=== PATIENT | female | born 1990 | race Two or more races ===

== ENCOUNTER 2024-10-10 12:54 | Outpatient (CLI) | payer BC, SELFPAY ==
--- OUTSIDE RECORDS SUMMARY | 2024-09-08 16:29 | XMS_ITS | Encounter Summary ---
Author Organization [place] [address] Care Team Providers Care Leaf Conditioner Helper Name Role Phone Giovanny Romero MD Primary Care Provider [phone] Reason for Visit * Reason Comments Flank Pain R flank pain and ajit sis x 30 min Encounter Details Date Type Department Care Team (Latest Contact Info) Description 09/08/2024 4:29 PM EDT - 09/08/2024 8:57 PM EDT Emergency [facility] [address] [place] [id number] Erick Jimenez MD [address] [place] [id number] Ureterolithiasis (Primary Dx); Right flank pain Discharge Disposition: Home or Self Care Social History Tobacco Use Types Packs/Day Years Used Date Smoking Tobacco: Never Smokeless Tobacco: Never Alcohol Use Standard Drinks/Week Comments Not Currently 0 (1 standard drink = 0.6 oz pur e alcohol) rarely PHQ-2 Answer Date Recorded PHQ-2 Total Score 0 10/19/2023 Sexually Active Control Partners Comments Yes Surgical Male Comments No Sex and Gender Information Value Date Recorded Sex Assigned at Not on file Legal Sex Female 11:17 PM EDT Gender Identity Not on file Sexual Orientation Not on file documented as of this encounter Last Filed Vital Signs Vital Sign Reading Time Taken Comments Blood Pressure 122/95 09/08/2024 4:17 PM EDT Pulse 80 09/08/2024 4:17 PM EDT Temperature 36.6 C (97.9 F) 09/08/2024 4:17 PM EDT Respiratory Rate 24 09/08/2024 4:17 PM EDT Oxygen Saturation 98% 09/08/2024 6:30 PM EDT Inhaled Oxygen Concentration - - Weight 74.8 kg (165 lb) 09/08/2024 4:17 PM EDT Height 149.9 cm (4' 11 ) 09/08/2024 4:17 PM EDT Body Mass Index 33.33 09/08/2024 4:17 PM EDT documented in this encounter Functional Status * Is the person deaf or does he/she have serious difficulty hearing? Answer Date of Assessment Author No 10/19/2023 2:53 PM EDT Matthew James RMA * Is the person blind or does he/she have serious difficulty seeing even when wearing glasses? Answer Date of Assessment Author No 10/19/2023 2:53 PM EDT Matthew James RMA * Does this person have serious difficulty walking or climbing stairs? Answer Date of Assessment Author No 10/19/2023 2:53 PM EDT Matthew James RMA * Does this person have difficulty dressing or bathing? Answer Date of Assessment Author No 10/19/2023 2:53 PM EDT Matthew James RMA * Because of a physical, mental or emotional condition, does this person have difficulty doing errands alone such as visiting a doctor's office or shopping? Answer Date of Assessment Author No 10/19/2023 2:53 PM EDT Matthew James RMA * Suicide Severity Rating Answer Date of Assessment Author No Risk 09/08/2024 4:34 PM EDT Vangie Tejeda RN * [place] Suicide Severity Rating Scale (Q shift for moderate and high) Question Answer Date of Assessment Author 1. In the past month, have y ou wished you were or wished you could go to sleep and not wake up? 0 09/08/2024 4:34 PM CATHIET Vangie Tejeda RN 2. In the past month, have y ou actually had any thoughts of killing yourself? (If no, skip to question 6) 0 09/08/2024 4:34 PM EDT Peel, A J, RN 6. Have you ever done anythi ng, started to do anything, or prepared to do anything to end your life? 0 09/08/2024 4:34 PM EDT Vangie Tejeda RN documented as of this encounter Mental Status * Because of a physical, mental or emotional condition, does this person have serious difficulty concentrating, remembering or making decisions? Answer Entry Date Author No 10/19/2023 2:53 PM EDT Matthew James RMA documented in this encounter Discharge Instructions * Discharge Instructions* Anna Etienne PA-C - 09/08/2024 8:18 PM EDT Maintain plenty of fluid intake. Take Flomax as prescribed. Jlqu-mia-[id number] ibuprofen or tylenol per bottle instructions as needed for pain. Pain medicine as needed for pain not controlled by over the counter meds. Zofran as needed for nausea/vomiting. Maintain plenty of fluid intake. Follow up with urology in 72 hours if no spontaneous passage of stone or symptoms persist. Return to emergency department for increased pain, fever, inability to urinate, or other concerningsymptoms. documented in this encounter Medications at Time of Discharge albuterol (PROVENTIL HFA;VENTOLIN HFA) 90 mcg/actuation Inhl HFA Aerosol InhalerIndication s:Acute bronchitis, unspecified organism Inhale 2 Puffs into the lungs every 6 hours as needed. 1 Each 4 10/03/2023 azelastine (ASTELIN) 137 mcg (0.1 %) Nasl [place], Non-AerosolIndica tions:Acute bacterial sinusitis 2 Sprays in each nostril 2 times daily. Use in each nostril as directed 30 mL 5 12/08/2023 erenumab-aooe (AIMOVIG AUTOINJECTOR) 140 mg/mL SubQ Auto-Injector Subcutaneous (Inject under the skin) 1 mL every 30 days. 1 Each 5 12/08/2023 erenumab-aooe (AIMOVIG AUTOINJECTOR) 70 mg/mL SubQ Auto-InjectorIndi cations:Chronic migraine without aura, intractable, with status migrainosus Subcutaneous (Inject under the skin) 70 mg every 30 days. 1 Each 5 10/03/2023 FLUoxetine (PROZAC) 40 mg Oral CapsuleIndication s:Major depressive disorder, recurrent episode, mild,Panic disorder Take 1 Capsule by mouth daily. 30 Capsule 5 12/08/2023 ketoconazole (NIZORAL) 2 % Top Cream Apply topically daily. 60 g 2 03/01/2024 meloxicam (MOBIC) 15 mg Oral TabletIndications :TMJ pain dysfunction syndrome Take 1 Tablet by mouth daily as needed for Pain. 90 Tablet 1 02/10/2023 nadoloL (CORGARD) 40 mg Oral TabletIndications :Migraine without aura and without status migrainosus, not intractable tablet nightly 30 Tablet 5 10/03/2023 ubrogepant (UBRELVY) 50 mg Oral Tablet Take 1 Tablet by mouth as needed for Migraine. May repeat dose in 2 hours one time up to a maximum of 100mg per 24 hours 16 Tablet 5 12/08/2023 HYDROcodone-aceta minophen (NORCO) 5-325 mg Oral Tablet Take 1-2 Tablets by mouth every 6 hours as needed for Acute Pain (R52) for up to 3 days. 15 Tablet 09/08/2024 5 ondansetron (ZOFRAN-ODT) 4 mg Oral Tablet, Rapid Dissolve Dissolve 1 Tablet by mouth every 6 hours as needed for Nausea for up to 30 days. 12 Tablet 09/08/2024 5 ondansetron (ZOFRAN-ODT) 4 mg Oral Tablet, Rapid Dissolve Dissolve 1 Tablet by mouth every 6 hours as needed for Nausea for up to 30 days. 12 Tablet 09/08/2024 5 tamsulosin (FLOMAX) 0.4 mg Oral Capsule Take 1 Capsule by mouth daily for 7 days. 7 Capsule 09/08/2024 5 documented as of this encounter Ordered Prescriptions Prescription Sig Dispense Quantity Refills Last Filled Start Date End Date ondansetron (ZOFRAN-ODT) 4 mg Oral Tablet, Rapid Dissolve Dissolve 1 Tablet by mouth every 6 hours as needed for Nausea for up to 30 days. 12 Tablet 09/08/2024 5 ondansetron (ZOFRAN-ODT) 4 mg Oral Tablet, Rapid Dissolve Dissolve 1 Tablet by mouth every 6 hours as needed for Nausea for up to 30 days. 12 Tablet 09/08/2024 5 tamsulosin (FLOMAX) 0.4 mg Oral Capsule Take 1 Capsule by mouth daily for 7 days. 7 Capsule 09/08/2024 5 HYDROcodone-acetam inophen (NORCO) 5-325 mg Oral Tablet Take 1-2 Tablets by mouth every 6 hours as needed for Acute Pain (R52) for up to 3 days. 15 Tablet 09/08/2024 5 documented in this encounter Discharge Disposition Disposition Code Departure Means Destination Comment s Home or Self [facility] documented in this encounter ED Notes * Anna Etienne PA-C - 09/08/2024 4:16 PM EDT Chief Complaint Chief Complaint Patient presents with Flank Pain R flank pain and emesis x 30 min HPI Patient seen for supervising physician, Dr. Jimenez. Delilah Ortega is a 33 y.o. female with PMH significant for migraines, asthma who presents to the emergency department via private vehicle with her for evaluation of right flank pain, emesis. Patient reports onset of right sided flank and abdominal pain about 1.5 hours ago. Pain is described as a sharp and stabbing sensation. She also has had persistent nonbloody and nonbilious emesissince onset of the pain. Her reports that she has been very sweaty but unsure if she has had a fever. Denies diarrhea, melena, hematochezia. Denies dysuria, hematuria, increased urinary frequency. Denies abnormal vaginal bleeding or discharge. Prior abdominal surgeries include umbilical hernia repair. Denies illicit drug or alcohol use. She has not had any medicine for symptoms. No other concerns or complaints. Review of Systems A complete review of systems is negative or noncontributory except as noted in the HPI. Past Medical History Past Medical History: Diagnosis Date Asthma seasonal, uses inhaler Heart murmur ? told by dentist Heartburn Migraine takes Nadolol Motion sickness Family History Family History Problem Relation Age of Onset Heart Disease Mother Migraines Mother Diabetes Paternal Grandmother Migraines Paternal Grandmother Heart Disease Brother Rheum Arthritis Neg Hx Osteoarthritis Neg Hx Asthma Neg Hx Breast Cancer Neg Hx Cancer Neg Hx Heart Failure Neg Hx High Cholesterol Neg Hx Hypertension Neg Hx Ovarian Cancer Neg Hx Rashes/Skin Problems Neg Hx Seizures Neg Hx Stroke Neg Hx Thyroid Disease Neg Hx Sickle Cell Anemia Neg Hx Heart Defect Neg Hx Down Syndrome Neg Hx Mental Retardation Neg Hx Clotting Disorder Neg Hx Bleeding Prob Neg Hx Cystic Fibrosis Neg Hx Chorea Neg Hx PKU Neg Hx Defects Neg Hx Social History Social History Socioeconomic History Marital status: Spouse name: None Number of children: None Years of education: None Highest education level: None Tobacco Use Smoking status: Never Smokeless tobacco: Never Substance and Sexual Activity Alcohol use: Not Currently Comment: rarely Drug use: No Sexual activity: Yes Partners: Male control/protection: Surgical Surgical History Past Surgical History: Procedure Laterality Date ABDOMINOPLASTY 2017 BREAST ENHANCEMENT SURGERY Bilateral augmentation CYST REMOVAL from left ear HYMENECTOMY 03/15/2012 SURGICAL EXCISION HYMENAL REMNANT ; Surgeon: Brad Ayala MD; Location: [facility]; Service: Gynecology TYMPANOSTOMY TUBE PLACEMENT UMBILICAL HERNIA REPAIR N/A 10/25/2019 Robotic assisted laparoscopic umbilical hernia repair with mesh; Surgeon: Ayan Vásquez MD; Location: [facility]; Service: General Current Medications No current facility-administered medications on file prior to encounter. Current Outpatient Medications on File Prior to Encounter Medication Sig Dispense Refill albuterol (PROVENTIL HFA;VENTOLIN HFA) 90 mcg/actuation Inhl HFA Aerosol Inhaler Inhale 2 Puffs into the lungs every 6 hours as needed. 1 Each 4 azelastine (ASTELIN) 137 mcg (0.1 %) Nasl [place], Non-Aerosol 2 Sprays in each nostril 2 times daily. Use in each nostril as directed 30 mL 5 azithromycin (ZITHROMAX) 250 mg Oral Tablet Take 2 tablets (500 mg) on Day 1, followed by 1 tablet (250 mg) once daily on Days 2 through 5. 6 Tablet 0 erenumab-aooe (AIMOVIG AUTOINJECTOR) 140 mg/mL SubQ Auto-Injector Subcutaneous (Inject under the skin) 1 mL every 30 days. 1 Each 5 erenumab-aooe (AIMOVIG AUTOINJECTOR) 70 mg/mL SubQ Auto-Injector Subcutaneous (Inject under the skin) 70 mg every 30 days. 1 Each 5 FLUoxetine (PROZAC) 40 mg Oral Capsule Take 1 Capsule by mouth daily. 30 Capsule 5 ketoconazole (NIZORAL) 2 % Top Cream Apply topically daily. 60 g 2 meloxicam (MOBIC) 15 mg Oral Tablet Take 1 Tablet by mouth daily as needed for Pain. 90 Tablet 1 nadoloL (CORGARD) 40 mg Oral Tablet tablet nightly 30 Tablet 5 ubrogepant (UBRELVY) 50 mg Oral Tablet Take 1 Tablet by mouth as needed for Migraine. May repeat dose in 2 hours one time up to a maximum of 100mg per 24 hours 16 Tablet 5 Allergies Allergies Allergen Reactions Penicillins Anaphylaxis Augmentin [Amoxicillin-Pot Clavulanate] Hives and Nausea And Vomiting Imitrex [Sumatriptan Succinate] Palpitations Physical Exam Vital Signs: ED Triage Vitals [09/08/24 1617] Temp Pulse 80 Resp BP SpO2 100 % Height Weight Constitutional: Well developed and well nourished. In obvious discomfort, unable to sit still. Diaphoretic. Actively vomiting is dry heaving. HENT: Head: Normocephalic and atraumatic. Ear: External ears normal. Nose: Nose normal. Mouth/Throat: Oropharynx clear and moist. Airway patent. Eyes: Conjunctivae normal, no discharge. EOMI. Neck: Supple. Normal ROM. Cardiovascular: Normal rate. Normal rhythm. No murmurs, rubs, or gallops. Pulmonary/Chest: Respiratory effort normal. No distress. Breath sounds clear and equal bilaterally.No wheezing, rales, or rhonchi. No chest wall tenderness. Abdomen: Normoactive bowel sounds. Abdomen is soft and nondistended. There is right sided abdominaltenderness and right flank tenderness. Mild voluntary guarding. No rebound or rigidity. Skin: Warm and dry. No erythema or rash. Musculoskeletal: No deformity or swelling. Compartments soft. Extremities: Warm and well perfused. Intact pulses. No edema or tenderness. Neurologic: Awake, alert and oriented x3. No focal deficits noted. Cranial nerves appear intact. Normal motor and sensory function. Psychiatric: Affect normal, judgment normal, mood normal. ED Procedures Procedures Radiology/EKG/Labs Results for orders placed or performed during the hospital encounter of 09/08/24 CT ABD PEL ED FAST W CONTRAST Narrative CT ABDOMEN AND PELVIS WITH CONTRAST (FAST), 09/08/2024 5:26 PM CLINICAL HISTORY: -right flank pain, vomiting, chills COMPARISON: CT of abdomen/pelvis 11/22/2020. PROCEDURE COMMENTS: Multidetector volumetric scanning of the abdomen and pelvis with multiplanar reformatting per expedited protocol. Iodinated contrast injected intravenously as documented in Epic. Automated exposure control for dose reduction was used. FINDINGS: LOWER CHEST: Clear lung bases. Bilateral breast implants. Small hiatal hernia. ABDOMEN & PELVIS: The liver, gallbladder, spleen, pancreas, and adrenal glands are unremarkable. There is a 4 x 2 mm mildly obstructing calculus at the right ureteropelvic junction. No irregular hypoenhancing regions are evident within the right kidney. The left kidney is normal. The bladder is collapsed. The uterus and ovaries are unremarkable. The bowel is normal in caliber, including the appendix, without evidence of obstruction or an acute inflammatory process. Linear scarring of the abdominal wall is likely postsurgical. There is no lymphadenopathy, fluid collection, or acute osseous abnormality. Impression Mildly obstructing 4 x 2 mm calculus at the right ureteropelvic junction. BASIC METABOLIC PANEL Result Value Ref Range Sodium 138 136 - 145 mmol/L Potassium 3.8 3.5 - 5.0 mmol/L Chloride 106 98 - 107 mmol/L Total CO2 16 (L) 22 - 29 mmol/L Anion Gap 16 7 - 16 mmol/L Calcium 8.8 8.6 - 10.4 mg/dL Glucose Lvl 154 (H) 70 - 99 mg/dL BUN 8 6 - 20 mg/dL Creatinine 0.71 0.51 - 1.30 mg/dL eGFR (CKD-EPIcr 2020) 115 >=60 mL/min/1.73 m2 HUMAN CHORIONIC GONADOTROPIN QUANTITATIVE Result Value Ref Range Hcg Quant <1 <5 mIU/mL Narrative Female (non-): 0-4.9 mIU/mL Female (postmenopausal): 0-8.1 mIU/mL Indeterminate values for (e.g., 5-25 mIU/mL) may be confirmed with a repeat test in 48-72hours. Values in should double every 2-3 days for the first six weeks. Ingestion of salma doses of biotin (>5 mg/day) taken within 8 hours of drawing blood sample can interfere with this immunoassay test. UA W/REFLEX TO CULTURE Specimen: Urine, Clean Catch Narrative The following orders were created for panel order UA W/REFLEX TO CULTURE. Procedure Abnormality Status --------- ------ URINALYSIS REFLEX[[id number]] Abnormal Final result EXTRA MADSEN URINE CX[[id number]] In process Please view results for these tests on the individual orders. URINALYSIS REFLEX Result Value Ref Range UA Color Colorless UA Appear Clear Clear UA Glucose Negative Negative mg/dL UA Ketones Negative Negative mg/dL UA Blood 1+ (0.06 - 0.1 mg/dL) (A) Negative UA pH 6.5 5.0 - 8.0 pH UA Protein Negative Negative mg/dL UA Urobilinogen Normal <=1 mg/dL UA Bili Negative Negative UA Nitrite Negative Negative UA Leuk Est Negative Negative UA Spec Grav 1.010 1.001 - 1.035 no units UA RBC 3 0 - 3 /HPF UA Squam Epi 3+ /LPF UA Mucus Trace /LPF CBC Result Value Ref Range WBC 17.5 (H) 3.7 - 10.3 x10(3)/mcL RBC 5.14 3.90 - 5.20 x10(6)/mcL Hgb 13.4 11.2 - 15.7 g/dL Hct 41.0 34.0 - 45.0 % MCV 79.8 (L) 80.0 - 100.0 fL MCH 26.1 26.0 - 34.0 pg MCHC 32.7 30.7 - 35.5 g/dL RDW 14.2 <=14.9 % Platelet 383 (H) 155 - 369 x10(3)/mcL MPV 9.7 8.8 - 12.5 fL LACTIC ACID Result Value Ref Range Lactic Acid 3.1 (H) 0.5 - 1.9 mmol/L LIPASE LEVEL Result Value Ref Range Lipase Lvl 36 13 - 60 U/L REPEAT LACTIC ACID Result Value Ref Range Lactic Acid 1.5 0.5 - 1.9 mmol/L PROCALCITONIN Result Value Ref Range Procalcitonin <0.05 <=0.49 ng/mL Narrative Procalcitonin <0.50 ng/mL: Procalcitonin levels below 0.50 ng/mL on the first day of ICU admission represent a low risk for progression to severe sepsis and/or septic shock Procalcitonin >=0.50 ng/mL and <=2.00 ng/mL: If the procalcitonin measurement is performed shortly after the systemic infection process has started (usually less than 6 hours), this value may still be low. As various non-infectious conditions are known to induce procalcitonin as well, procalcitonin levels between 0.50 ng/mL and 2.00 ng/mL should be reviewed carefully to take into account the specific clinical background and condition(s) of the patient. Procalcitonin >2.00 ng/mL: Procalcitonin levels above 2.00 ng/mL on the first day of ICU admission represent a high risk for progression to severe sepsis and/or septic shock. Scoring Tools: ED Course ED Course as of 09/08/242048 Anna Etienne's Documentation [place] Sep 08, [address] Abdomen Pelvis FAST with IV contrast Mildly obstructing 4 x 2 mm calculus at the right ureteropelvic junction. ED Medications ED Current Prescriptions Medication Dispense Auth. Provider HYDROcodone-acetaminophen (NORCO) 5-325 mg Oral Tablet 15 Tablet Erick Jimenez MD tamsulosin (FLOMAX) 0.4 mg Oral Capsule 7 Capsule Anna Etienne PA-C ondansetron (ZOFRAN-ODT) 4 mg Oral Tablet, Rapid Dissolve 12 Tablet Anna Etienne PA-C ondansetron (ZOFRAN-ODT) 4 mg Oral Tablet, Rapid Dissolve 12 Tablet Erick Jimenez MD Medical Decision Making Patient seen for Dr. Jimenez. Pertinent labs and imaging studies reviewed. History was obtained from the patient. Medical records reviewed via ICU Metrix. This is a 33 y.o. female who presented to the ED for evaluation of right flank pain, emesis as described in HPI. Differentials included but were not limited to ureterolithiasis versus pyelonephritis versus perforated viscus versus bacterial peritonitis. On arrival, patient was ill-appearing but nontoxic, in obvious distress and unable to sit still. Vital signs were stable. She was normotensive, afebrile, and nontachycardic. Physical exam as above and notable for moderate tenderness on palpation of the right mid abdomen and right flank. No peritoneal signs or evidence of acute abdomen. Urinalysis revealed blood and CT of the abdomen/pelvis showed a mildly obstructing 4 x 2 mm calculus at the right UPJ. Initial lactic also elevated at 3.1 but improved to 1.5 after 1 L IV fluids. Moderate leukocytosis also noted, likely reactive/stress-induced from the vomiting. Pro-Van normal. Kidney function normal. Patient received morphine, Toradol, Dilaudid, and Zofran for symptom control and had significant improvement while in the ED. Urine not infected, so was deemed appropriate for discharge. She was sentprescriptions for pain medicine and Flomax as well as referred to urology for close follow-up if nospontaneous stone passage. Strict return precautions were discussed and the patient voiced understanding. All questions were answered. Patient was discharged in stable condition. ED Clinical Impression: Ureterolithiasis (primary encounter diagnosis) Right flank pain Condition at Discharge/Transfer from Department: Stable This chart was completed using voice recognition technology and may contain unintended errors Anna Etienne PA-C 09/08/242048 Cosigned by Erick Jimenez MD at 09/08/2024 9:54 PM EDT Associated attestation - Erick Jimenez MD - 09/08/2024 9:54 PM EDT Attending Wrap Yarn Sorter Note: I have participated in the care of this patient and have reviewed the pertinent clinical information including physical exam findings, labs, and radiographic studies. I have reviewed and/or discussedthe plan of care, of which I personally approve and take responsibility for the patient management. This patient was seen in coordination with the PA/SURVEYOR MINE. We discussed the management plan and testing results for this patient and I performed a substantive portion of the medical decision making. ED Course as of 09/08/242153 Others' Documentation Sun Sep 08, [address] Abdomen Pelvis FAST with IV contrast Mildly obstructing 4 x 2 mm calculus at the right ureteropelvic junction. [KF] ED Course User Index [KF] Anna Etienne PA-C No orders to display Erick Jimenez MD This chart was completed using voice recognition technology and may contain unintended errors documented in this encounter Plan of Treatment Upcoming Encounters Date Type Department Care Team (Late st Contact Info) Description 12/13/2024 9:30 AM EDT Office Visit [facility] [address] [place] [id number] Ashley Campbell PA-C [address] [place] [place] [address] 01/27/2025 8:30 AM EST Office Visit [facility] [address] [facility] [address] [place] [address] Kristal Hargrove, CN [address] [place] [address] documented as of this encounter Goals Goal Patient Goal Type Associated Problems Recent Progress Patient-Stated? Author Maintain a healthy diet, exercise regularly and maintain an ideal body weight General No Shahla Malik RMA documented as of this encounter Procedures Procedure Name Priority Date/Time Associated Diagnosis Comments REPEAT LACTIC ACID STAT 09/08/2024 7: 31 PM EDT PROCALCITONIN STAT 09/08/2024 7:31 PM EDT URINALYSIS REFLEX STAT 09/08/2024 7:1 1 PM EDT UA W/REFLEX TO CULTURE STAT 7:11 PM EDT EXTRA MADSEN URINE CX STAT 09/08/2024 7 :11 PM EDT LACTIC ACID STAT 09/08/2024 5:[address] ABD PEL ED FAST W CONTRAST STAT 09/08/2024 5:26 PM EDT CBC STAT 09/08/2024 4:35 PM EDT HUMAN CHORIONIC GONADOTROPIN QUANTITATIVE STAT 09/08/2024 4:35 PM EDT LIPASE LEVEL Add-On 09/08/2024 4:35 PM EDT BASIC METABOLIC PANEL STAT 09/08/2024 4:35 PM EDT SALINE LOCK IV STAT 09/08/2024 4:17 PM EDT documented in this encounter Results * PROCALCITONIN (09/08/2024 7:31 PM EDT) Procalcitonin <0.05 <=0.49 ng/mL 09/08/2024 8:07 PM EDT [facility] Blood VENOUS BLOOD / Unknown Venipuncture / Unknown 09/08/2024 7:31 PM EDT 09/08/2024 7:39 PM EDT Narrative [facility] - 09/08/2024 8:07 PM EDT Procalcitonin <0.50 ng/mL: Procalcitonin levels below 0.50 ng/mL on the first day of ICU admission represent a low risk for progression to severe sepsis and/or septic shock Procalcitonin >=0.50 ng/mL and <=2.00 ng/mL: If the procalcitonin measurement is performed shortly after the systemic infection process has started (usually less than 6 hours), this value may still be low. As various non-infectious conditions are known to induce procalcitonin as well, procalcitonin levels between 0.50 ng/mL and 2.00 ng/mL should be reviewed carefully to take into account the specific clinical background and condition(s) of the patient. Procalcitonin >2.00 ng/mL: Procalcitonin levels above 2.00 ng/mL on the first day of ICU admission represent a high risk for progression to severe sepsis and/or septic shock. us Anna Etienne PA-C CHEMISTRY ORDERABLES Final Res ult [facility] [address] [place] [address] * REPEAT LACTIC ACID (09/08/2024 7:31 PM EDT) Pathologist [facility] Lactic Acid 1.5 0.5 - 1.9 mmol/L 09/08/2024 7:58 PM EDT [facility] Blood VENOUS BLOOD / Unknown Venipuncture / Unknown 09/08/2024 7:31 PM EDT 09/08/2024 7:39 PM EDT Anna Etienne PA-C CHEMISTRY ORDERABLES Final Res ult Performing Organization Address City/[facility]/ZIP Co de Phone Number [facility] [address] [place] [address] * EXTRA MADSEN URINE CX (09/08/2024 7:11 PM EDT) Urine STRUCTURE OF URINARY TRACT PROPER / Unknown 09/08/2024 7:11 PM EDT 09/08/2024 7:15 PM EDT Erick Jimenez MD MICROBIOLOGY - GENERAL ORDERABL ES Final Result Performing Organization Address [facility]/ZIP Co de Phone Number [facility] [address] [place] [address] * (ABNORMAL) URINALYSIS REFLEX (09/08/2024 7:11 PM EDT) Pathologist [facility] UA Color Colorless 09/08/2024 7:24 PM EDT [facility] UA Appear Clear Clear 09/08/2024 7:24 PM EDT [facility] UA Glucose Negative Negative mg/dL 09/08/2024 7:24 PM EDT [facility] UA Ketones Negative Negative mg/dL 09/08/2024 7:24 PM EDT [facility] UA Blood 1+ (0.06 - 0.1 mg/dL)(A) Negative 09/08/2024 7:24 PM EDT [facility] UA pH 6.5 5.0 - 8.0 pH 09/08/2024 7:24 PM EDT [facility] UA Protein Negative Negative mg/dL 09/08/2024 7:24 PM EDT [facility] UA Urobilinogen Normal <=1 mg/dL 7:24 PM EDT [facility] UA Bili Negative Negative 09/08/2024 7:24 PM EDT [facility] UA Nitrite Negative Negative 09/08/2024 7:24 PM EDT [facility] UA Leuk Est Negative Negative 09/08/2024 7:24 PM EDT [facility] UA Spec Grav 1.010 1.001 - 1.035 no units 09/08/2024 7:24 PM EDT [facility] Comment:Reference range johanny d for random specimens only. UA RBC 3 0 - 3 /HPF 09/08/2024 7:24 PM EDT [facility] UA Squam Epi 3+ /LPF 09/08/2024 7:24 PM EDT [facility] UA Mucus Trace /LPF 09/08/2024 7:24 PM EDT [facility] Urine STRUCTURE OF URINARY TRACT PROPER / Unknown 09/08/2024 7:11 PM EDT 09/08/2024 7:15 PM EDT us Erick Jimenez MD URINE ORDERABLES Final Result Performing Organization Address [facility]/ZIP Co de Phone Number [facility] [address] [place] [address] * (ABNORMAL) LACTIC ACID (09/08/2024 5:36 PM EDT) Lactic Acid 3.1(H) 0.5 - 1.9 mmol/L 09/08/2024 5:58 PM EDT [facility] Blood VENOUS BLOOD / Unknown Venipuncture / Unknown 09/08/2024 5:36 PM EDT 09/08/2024 5:40 PM EDT us Anna Etienne PA-C CHEMISTRY ORDERABLES Final Res ult Performing Organization Address City/[facility]/ZIP Co de Phone Number [facility] [address] [place] [address] * CT ABD PEL ED FAST W CONTRAST (09/08/2024 5:26 PM EDT) Anatomical Region Laterality Modality Abdomen, Pelvis Computed Tomogra phy 09/08/2024 5:26 PM EDT Impressions 09/08/2024 5:48 PM EDT Mildly obstructing 4 x 2 mm calculus at the right ureteropelvic junction. Narrative 09/08/2024 5:[address] ABDOMEN AND PELVIS WITH CONTRAST (FAST), 09/08/2024 5:26 PM CLINICAL HISTORY: -right flank pain, vomiting, chills COMPARISON: CT of abdomen/pelvis 11/22/2020. PROCEDURE COMMENTS: Multidetector volumetric scanning of the abdomen and pelvis with multiplanar reformatting per expedited protocol. Iodinated contrast injected intravenously as documented in Epic. Automated exposure control for dose reduction was used. FINDINGS: LOWER CHEST: Clear lung bases. Bilateral breast implants. Small hiatal hernia. ABDOMEN & PELVIS: The liver, gallbladder, spleen, pancreas, and adrenal glands are unremarkable. There is a 4 x 2 mm mildly obstructing calculus at the right ureteropelvic junction. No irregular hypoenhancing regions are evident within the right kidney. The left kidney is normal. The bladder is collapsed. The uterus and ovaries are unremarkable. The bowel is normal in caliber, including the appendix, without evidence of obstruction or an acute inflammatory process. Linear scarring of the abdominal wall is likely postsurgical. There is no lymphadenopathy, fluid collection, or acute osseous abnormality. Procedure Note Tad Rodrigues MD - 09/08/2024 CT ABDOMEN AND PELVIS WITH CONTRAST (FAST), 09/08/2024 5:26 PM CLINICAL HISTORY: -right flank pain, vomiting, chills COMPARISON: CT of abdomen/pelvis 11/22/2020. PROCEDURE COMMENTS: Multidetector volumetric scanning of the abdomen andpelvis with multiplanar reformatting per expedited protocol. Iodinated contrast injected intravenously as documented in Epic. Automated exposure controlfor dose reduction was used. FINDINGS: LOWER CHEST: Clear lung bases. Bilateral breast implants. Small hiatalhernia. ABDOMEN & PELVIS: The liver, gallbladder, spleen, pancreas, and adrenal glands areunremarkable. There is a 4 x 2 mm mildly obstructing calculus at the rightureteropelvic junction. No irregular hypoenhancing regions are evident within theright kidney. The left kidney is normal. The bladder is collapsed. The uterusand ovaries are unremarkable. The bowel is normal in caliber, including the appendix, without evidenceof obstruction or an acute inflammatory process. Linear scarring of the abdominal wall is likely postsurgical. There isno lymphadenopathy, fluid collection, or acute osseous abnormality. IMPRESSION: Mildly obstructing 4 x 2 mm calculus at the right ureteropelvicjunction. Anna Etienne PA-C IMG CT ORDERABLES Final Result * LIPASE LEVEL (09/08/2024 4:35 PM EDT) Pathologist [facility] Lipase Lvl 36 13 - 60 U/L 09/08/2024 7:21 PM EDT [facility] Blood VENOUS BLOOD / Unknown Venipuncture / Unknown 09/08/2024 4:35 PM EDT 09/08/2024 4:41 PM EDT Anna Etienne PA-C CHEMISTRY ORDERABLES Final Res ult [facility] [address] [place] [id number] * (ABNORMAL) CBC (09/08/2024 4:35 PM EDT) Pathologist [facility] WBC 17.5(H) 3.7 - 10.3 x10(3)/mcL 09/08/2024 4:44 PM EDT [facility] RBC 5.14 3.90 - 5.20 x10(6)/mcL 09/08/2024 4:44 PM EDT [facility] Hgb 13.4 11.2 - 15.7 g/dL 09/08/2024 4:44 PM EDT [facility] Hct 41.0 34.0 - 45.0 % 09/08/2024 4:44 PM EDT [facility] MCV 79.8(L) 80.0 - 100.0 fL 09/08/2024 4:44 PM EDT [facility] MCH 26.1 26.0 - 34.0 pg 09/08/2024 4:44 PM EDT [facility] MCHC 32.7 30.7 - 35.5 g/dL 09/08/2024 4:44 PM EDT [facility] RDW 14.2 <=14.9 % 09/08/2024 4:44 PM EDT [facility] Platelet 383(H) 155 - 369 x10(3)/mcL 09/08/2024 4:44 PM EDT [facility] MPV 9.7 8.8 - 12.5 fL 09/08/2024 4:44 PM EDT [facility] Blood VENOUS BLOOD / Unknown Venipuncture / Unknown 09/08/2024 4:35 PM EDT 09/08/2024 4:41 PM EDT us Anna Etienne PA-C HEMATOLOGY ORDERABLES Final Re sult [facility] [address] [place] [address] * HUMAN CHORIONIC GONADOTROPIN QUANTITATIVE (09/08/2024 4:35 PM EDT) Hcg Quant <1 <5 mIU/mL 09/08/2024 5:02 PM EDT [facility] Blood VENOUS BLOOD / Unknown Venipuncture / Unknown 09/08/2024 4:35 PM EDT 09/08/2024 4:41 PM EDT Narrative [facility] - 09/08/2024 5:02 PM EDT Female (non-): 0-4.9 mIU/mL Female (postmenopausal): 0-8.1 mIU/mL Indeterminate values for (e.g., 5-25 mIU/mL) may be confirmed with a repeat test in 48-72 hours. Values in should double every 2-3 days for the first six weeks. Ingestion of salma doses of biotin (>5 mg/day) taken within 8 hours of drawing blood sample can interfere with this immunoassay test. us Erick Jimenez MD CHEMISTRY ORDERABLES Final Resu lt Performing Organization Address [facility]/ZIP Co de Phone Number [facility] [address] [place] [address] * (ABNORMAL) BASIC METABOLIC PANEL (09/08/2024 4:35 PM EDT) Sodium 138 136 - 145 mmol/L 09/08/2024 5:04 PM EDT [facility] Potassium 3.8 3.5 - 5.0 mmol/L 09/08/2024 5:04 PM EDT [facility] Chloride 106 98 - 107 mmol/L 09/08/2024 5:04 PM EDT [facility] Total CO2 16(L) 22 - 29 mmol/L 09/08/2024 5:04 PM EDT [facility] Anion Gap 16 7 - 16 mmol/L 09/08/2024 5:04 PM EDT [facility] Calcium 8.8 8.6 - 10.4 mg/dL 09/08/2024 5:04 PM EDT [facility] Glucose Lvl 154(H) 70 - 99 mg/dL 09/08/2024 5:04 PM EDT [facility] BUN 8 6 - 20 mg/dL 09/08/2024 5:04 PM EDT [facility] Creatinine 0.71 0.51 - 1.30 mg/dL 09/08/2024 5:04 PM EDT [facility] eGFR (CKD-EPIcr 2020) 115 >=60 mL/min/1.7 3 m2 09/08/2024 5:04 PM EDT [facility] Comment:Estimated GFR was ca lculated using the CKD-EPIcr (2020) equation refit without race. The equation is recommended by the [employer] - [place] [employer] Task Force. Blood VENOUS BLOOD / Unknown Venipuncture / Unknown 09/08/2024 4:35 PM EDT 09/08/2024 4:41 PM EDT Erick Jimenez MD CHEMISTRY ORDERABLES Final Resu lt Performing Organization Address [facility] Co de Phone Number [facility] [address] [place] [address] documented in this encounter Visit Diagnoses Diagnosis Ureterolithiasis- Primary Calculus of ureter Right flank pain Abdominal pain, unspecified site documented in this encounter Administered Medications Inactive Administered Medications - up to 1 most recent administrations Medication Order MAR Action Action Date Dose Rate Site HYDROcodone-acetaminophen (NORCO) 5-325 mg per tablet 1 Tablet 1 Tablet, Oral, ONCE, 1 dose, On 09/08/24 at 2045, Maximum adult dose of acetaminophen is 4000 mg from all sources in 24 hours. Given 09/08/2024 8:42 PM EDT 1 Tablet HYDROmorphone (DILAUDID) injection 0.5 mg 0.5 mg, Intravenous, ONCE, 1 dose, On 09/08/24 at 1715 Given 09/08/2024 5:03 PM EDT 0.5 mg iopamidoL (ISOVUE-370) 370 mg iodine /mL (76 %) injection (LOW) 100 mL 100 mL, Intravenous, ONCE PRN, 1 dose, Starting on Mon09/08/24 at 1702, Until Mon09/08/24 at 1727, Radiography/Imaging, Radiology Procedure, [facility] , CT (Contrasts) Given 09/08/2024 5:27 PM EDT 100 mL ketorolac (TORADOL) injection 15 mg 15 mg, Intravenous, ONCE, 1 dose, On 09/08/24 at 1830, For IV Administration: Give undiluted over at least 15 seconds. Maximum IV dose is 30mg. For IM Administration: Give undiluted, slowly and deeply into the muscle. Given 09/08/2024 6:30 PM EDT 15 mg morphine injection 4 mg 4 mg, Intravenous, ONCE, 1 dose, On 09/08/24 at 1645 Given 09/08/2024 4:53 PM EDT 4 mg ondansetron (ZOFRAN) injection 4 mg 4 mg, Intravenous, ONCE, 1 dose, On Mon09/08/24 at 1645 Given 09/08/2024 4:52 PM EDT 4 mg sodium chloride 0.9 % 1,000 mL IV bolus Intravenous, ONCE, 1 dose, On Mon09/08/24 at 1645, at 983.6 mL/hr IV Started 09/08/2024 5:51 PM EDT 983.6 mL/hr sodium chloride 0.9% IV line flush 50 mL 50 mL, Intravenous, at 150-600 mL/hr, PRN, Starting on Mon09/08/24 at 1617, Until Mon09/09/24 at 0057, Line Care, Flush with a minimum of 20 mL after IVPB to insure complete administration of the dose. May use the saline infusion to back flush IVPB tubing as needed., Use this order to document priming and flushing IV line after medication administration. sodium chloride 0.9% syringe 5 mL 5 mL, Intravenous, PRN, Starting on Mon09/08/24 at 1617, Until Mon09/09/24 at 0057, Line Care, Flush with 5 mL saline pre/post IVP, and 5 mL prior to IVPB or blood product administration. Protocol for PERIPHERAL IV saline lock maintenance, flush with 3-5 mL saline syringe every 8 hours., Flush peripheral lines every 12 hours, central lines every 8 hours, and after IV medication sodium chloride 0.9% syringe Intravenous, ONCE PRN, 1 dose, Starting on Mon09/08/24 at 1702, Until Mon09/08/24 at 1727, Line Care, Flush peripheral lines every 12 hours, central lines every 8 hours, and after IV medication, CT (Contrasts) Given 09/08/2024 5:27 PM EDT tamsulosin (FLOMAX) capsule 0.4 mg 0.4 mg, Oral, ONCE, 1 dose, On Mon09/08/24 at 2044, Capsule should be swallowed whole, do not open Given 09/08/2024 8:42 PM EDT 0.4 mg documented in this encounter Active and Recently Administered Medications Times are shown in EDT. Scheduled Medication Order 09/06/2024 09/07/2024 09/08/2024 HYDROcodone-acetaminophen (NORCO) 5-325 mg per tablet 1 Tablet (COMPLETED) 1 Tablet, Oral, ONCE, 1 dose, On Mon09/08/24 at 2044, Maximum adult dose of acetaminophen is 4000 mg from all sources in 24 hours. 2041 (Given - Provid er: Jh Bauer RN) HYDROmorphone (DILAUDID) injection 0.5 mg (COMPLETED) 0.5 mg, Intravenous, ONCE, 1 dose, On Mon09/08/24 at 1715 1703 (Given - Provid er: Maxime Jennings RN) ketorolac (TORADOL) injection 15 mg (COMPLETED) 15 mg, Intravenous, ONCE, 1 dose, On 09/08/24 at 1830, For IV Administration: Give undiluted over at least 15 seconds. Maximum IV dose is 30mg. For IM Administration: Give undiluted, slowly and deeply into the muscle. 1830 (Given - Provid er: Maxime Jennings RN) morphine injection 4 mg (COMPLETED) 4 mg, Intravenous, ONCE, 1 dose, On 09/08/24 at 1645 1653 (Given - Provid er: Maxime Jennings RN) ondansetron (ZOFRAN) injection 4 mg (COMPLETED) 4 mg, Intravenous, ONCE, 1 dose, On 09/08/24 at 1645 1652 (Given - Provid er: Maxime Jennings RN) sodium chloride 0.9 % 1,000 mL IV bolus (COMPLETED) Intravenous, ONCE, 1 dose, On 09/08/24 at 1645, at 983.6 mL/hr 1751 (IV Started - P rovider: Maxime Jennings RN)1852 (Stopped - Provider: Maxime Jennings RN) tamsulosin (FLOMAX) capsule 0.4 mg (COMPLETED) 0.4 mg, Oral, ONCE, 1 dose, On 09/08/24 at 204, Capsule should be swallowed whole, do not open 2041 (Given - Provid er: Jh Bauer RN) PRN Medication Order 09/06/2024 09/07/2024 09/08/2024 iopamidoL (ISOVUE-370) 370 mg iodine /mL (76 %) injection (LOW) 100 mL (COMPLETED) 100 mL, Intravenous, ONCE PRN, 1 dose, Starting on 09/08/24 at 1702, Until 09/08/24 at 1727, Radiography/Imaging, Radiology Procedure, [facility] , CT (Contrasts) 1727 (Given - Provid er: Sandra Mackenzie, RT) sodium chloride 0.9% IV line flush 50 mL 50 mL, Intravenous, at 150-600 mL/hr, PRN, Starting on Mon09/08/24 at 1617, Until Mon09/09/24 at 0057, Line Care, Flush with a minimum of 20 mL after IVPB to insure complete administration of the dose. May use the saline infusion to back flush IVPB tubing as needed., Use this order to document priming and flushing IV line after medication administration. sodium chloride 0.9% syringe 5 mL 5 mL, Intravenous, PRN, Starting on Mon09/08/24 at 1617, Until Mon09/09/24 at 0057, Line Care, Flush with 5 mL saline pre/post IVP, and 5 mL prior to IVPB or blood product administration. Protocol for PERIPHERAL IV saline lock maintenance, flush with 3-5 mL saline syringe every 8 hours., Flush peripheral lines every 12 hours, central lines every 8 hours, and after IV medication sodium chloride 0.9% syringe (COMPLETED) Intravenous, ONCE PRN, 1 dose, Starting on Mon09/08/24 at 1702, Until Mon09/08/24 at 1727, Line Care, Flush peripheral lines every 12 hours, central lines every 8 hours, and after IV medication, CT (Contrasts) 1727 (Given - Provid er: Sandra Mackenzie, RT) documented in this encounter Orders Medications Ordered That Sudeep ht Not Have Been Administered Count Last Ordered Date First Ordered Date sodium chloride 0.9% IV line flush 50 mL 09/08/2024 sodium chloride 0.9% syringe 5 mL 1 025 IV Count Last Ordered Date First Orde red Date SALINE LOCK IV 09/08/2024 documented in this encounter Care Teams 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
--- OUTSIDE RECORDS SUMMARY | 2024-09-12 13:00 | XMS_ITS | Encounter Summary ---
Author Organization [place] [address] Care Team Providers Care [employer] Developer Name Role Phone Giovanny Romero MD Primary Care Provider [phone] Reason for Referral * (Routine) - Pending Review Specialty Diagnoses / Procedures Referred By Morenita larios Referred To Contact Diagnoses Right nephrolithiasis Procedures AMB URO SURGERY COMM ORDER Trae Lagos MD [address] [place] [id number] Phone: tel: fax: Referral ID Status Reason Start Date Expiration Date V isits Requested Visits Authorized [id number] Pending Review 09/12/2024 09/12/2025 1 1 Reason for Visit * Reason Comments Nephrolithiasis pt. is here for a st one on the right side. pt. stated that she is in excruciating pain. Pt. stated that she went to the ER and they told her that if she didn't pass it in 72 hours to come here to discuss surgical options. pt. was given flomax in ER. Encounter Details Date Type Department Care Team (Latest Contact Info) Description 09/12/2024 1:00 PM EDT Office Visit [facility] [address] [place] [phone] Trae Lagos MD [address] [place] [id number] Right nephrolithiasis (Primary Dx) Social History Tobacco Use Types Packs/Day Years Used Date Smoking Tobacco: Never Smokeless Tobacco: Never Tobacco Cessation:Counseling Given: Not Answered Alcohol Use Standard Drinks/Week Comments Not Currently [...] Sign Reading Time Taken Comments Blood Pressure 128/82 09/12/2024 1:15 PM EDT Pulse - - Temperature 36.6 C (97.8 F) 09/12/2024 1:15 PM EDT Respiratory Rate - - Oxygen Saturation - - Inhaled Oxygen Concentration - - Weight 74.4 kg (164 lb 0.4 oz) 09/12/2024 1:15 P M EDT Height - - Body Mass Index 33.13 09/08/2024 4:17 PM EDT documented in this [...] 2:53 PM EDT Matthew James RMA documented as of this encounter Mental Status * Because of a physical, mental or emotional condition, does this person have serious difficulty concentrating, remembering or making decisions? Answer Entry Date Author No 10/19/2023 2:53 PM EDT Matthew James RMA documented in this encounter Ordered Prescriptions Prescription Sig Dispense Quantity Refills Last Filled Start Date End Date ketorolac (TORADOL) 10 mg Oral Tablet Take 1 Tablet by mouth every 6 hours as needed for Pain. 12 Tablet 09/12/2024 documented in this encounter Progress Notes * Trae Lagos MD - 09/12/2024 1:00 PM EDT Images from the original note were not included. [facility]rology New E&M Delilah Ortega 1990 Assessment/Orders: Delilah was seen today for nephrolithiasis. Diagnoses and all orders for this visit: Right nephrolithiasis - AMB URO SURGERY COMM ORDER Other orders - ketorolac (TORADOL) 10 mg Oral Tablet; Take 1 Tablet by mouth every 6 hours as needed for Pain. PLAN: 1. Right nephrolithiasis (Primary) - AMB URO SURGERY COMM ORDER Today we discussed nephrolithiasis. We discussed etiology of stones and symptoms associated with them. We discussed when treatment is most indicated and various appropriate approaches to treatment including ESWL, ureteroscopy, PCNL, trial of passage, watchful waiting. Discussed risks/benefits to each indicated approach along with procedure and recovery process. We discussed the need for staged pro cedures and placement of ureteral stents whether it be before or after stone treatment. We opted toproceed with cystoscopy, ureteroscopy LL, stent placement. Very uncomfortable today discussed primary ureteroscopy, stent placement discussed ER Return: No follow-ups on file. Chief Complaint(s): Chief Complaint Patient presents with Nephrolithiasis pt. is here for a stone on the right side. pt. stated that she is in excruciating pain. Pt. stated that she went to the ER and they told her that if she didn't pass it in 72 hours to come here to discuss surgical options. pt. was given flomax in ER. HPI: 33 y.o. female referred for evaluation and management of nephrolithiasis. Needs intervention; in severe pain/discomfort proximal UPJ stone 3mm approx prior stones? unsure as she may have passed but similar presentation UA today with blood No results found for this visit on 09/12/24. Past Medical History: Past Medical History: Diagnosis Date Asthma seasonal, uses inhaler Heart murmur ? told by dentist Heartburn Migraine takes Nadolol Motion sickness Past Surgical History: Procedure Laterality Date ABDOMINOPLASTY 2017 BREAST ENHANCEMENT SURGERY Bilateral augmentation CYST REMOVAL from left ear HYMENECTOMY 03/15/2012 SURGICAL EXCISION HYMENAL REMNANT ; Surgeon: Brad Ayala MD; Location: [facility] MAIN OR; Service: Gynecology TYMPANOSTOMY TUBE PLACEMENT UMBILICAL HERNIA REPAIR N/A 10/25/2019 Robotic assisted laparoscopic umbilical hernia repair with mesh; Surgeon: Ayan Vásquez MD; Location: [facility] MAIN OR; Service: General Current Outpatient Medications Medication Sig Dispense Refill albuterol (PROVENTIL HFA;VENTOLIN HFA) 90 mcg/actuation Inhl HFA Aerosol Inhaler Inhale 2 Puffs into the lungs every 6 hours as needed. 1 Each 4 azelastine (ASTELIN) 137 mcg (0.1 %) Nasl Mobile, Non-Aerosol 2 Sprays in each nostril 2 [...] Oral Tablet tablet nightly 30 Tablet 5 ondansetron (ZOFRAN-ODT) 4 mg Oral Tablet, Rapid Dissolve Dissolve 1 Tablet by mouth every 6 hours as needed for Nausea for up to 30 days. 12 Tablet 0 ondansetron (ZOFRAN-ODT) 4 mg Oral Tablet, Rapid Dissolve Dissolve 1 Tablet by mouth every 6 hours as needed for Nausea for up to 30 days. 12 Tablet 0 tamsulosin (FLOMAX) 0.4 mg Oral Capsule Take 1 Capsule by mouth daily for 7 days. 7 Capsule 0 ubrogepant (UBRELVY) 50 mg Oral Tablet Take 1 Tablet by mouth as needed for Migraine. May repeat dose in 2 hours one time up to a maximum of 100mg per 24 hours 16 Tablet 5 ketorolac (TORADOL) 10 mg Oral Tablet Take 1 Tablet by mouth every 6 hours as needed for Pain. 12 Tablet 0 No current facility-administered medications for this visit. Allergies Allergen Reactions Penicillins Anaphylaxis Augmentin [Amoxicillin-Pot Clavulanate] Hives and Nausea And Vomiting Imitrex [Sumatriptan Succinate] Palpitations Family History: Family History Problem Relation Age of Onset [...] PKU Neg Hx Defects Neg Hx Social History: Social History Socioeconomic History Marital status: Spouse name: None Number of children: None Years of education: None Highest education level: None Tobacco Use Smoking status: Never Smokeless tobacco: Never Substance and Sexual Activity Alcohol use: Not Currently Comment: rarely Drug use: No Sexual activity: Yes Partners: Male control/protection: Surgical ROS All other systems reviewed and negative except as stated in HPI PHYSICAL EXAM: Constitutional: Vitals Signs: BP 128/82 (BP Location: Left arm, Patient Position: Sitting) Temp 97.8 ??F (36.6 ??C) (Temporal) Wt 164 lb 0.4 oz (74.4 kg) LMP 08/08/2024 (Approximate) BMI 33.13 kg/m?? Appearance: No acute distress, comfortable at rest Mood & Affect: Anxiety No Depressed No Agitated No Skin: No cyanosis, jaundice or pallor Neck & Thyroid: Neck: Symmetric Yes Swelling No Tender No Thyroid: Not enlarged Respiratory: Clear to air entry bilaterally Cardiac: Regular rate and rhythm, heart sounds normal Lymphatic: Neck: No Abnormalities Groin: No Abnormalities Muskuloskeletal: Digits & Nails: Digits Normal Nails Normal Gait & Station: Gait Normal Station Normal ENT: External: Ears Normal Nose Normal Mouth Normal Hearing: Good hearing at 3 feet Data: No results found for this visit on 09/12/24. Labs: Lab results were reviewed in [facility] and pertinent positives are: No results found for: PSA Lab Results Component Value Date CREATININE 0.71 09/08/2024 BUN 8 09/08/2024 NA 138 09/08/2024 K 3.8 09/08/2024 CL 106 09/08/2024 CO2 16 (L) 09/08/2024 GFRAFRAM 118 12/01/2020 GFRNONAFRAM 102 12/01/2020 Imaging: Imaging studies (both written report and images on file) were reviewed in [employer] and pertinent positives are: No results found for this or any previous visit. No results found for this or any previous visit. No results found for this or any previous visit. No results found for this or any previous visit. No results found for this or any previous visit. Existing Medical Record: Progress Notes, Consults and miscellaneous records were reviewed in [employer] and pertinent positives are: see synopsis Outside paper records reviewed if applicable Trae Lagos MD [facility] 09/12/2024 1:31 PM documented in this encounter Plan of Treatment Upcoming Encounters Date Type Department Care Team (Late st Contact Info) Description 12/13/2024 9:30 AM EDT Office Visit [facility] [address] [place] [id number] Ashley Campbell PAStellaC [address] [place] [address] 01/27/2025 8:30 AM EST Office Visit [facility] [address] [facility] [address] [place] [address] Kristal Hargrove, CNM [address] [place] [address] Scheduled Orders Name Type Priority Associated Diagnoses Orde r Schedule SURGICAL/PROCEDURE CASE REQUEST Procedures Routine Right nephrolithiasis Ordered: 09/12/2024 documented as of this encounter Goals Goal Patient Goal Type Associated Problems Recent Progress Patient-Stated? Author Maintain a healthy diet, exercise regularly and maintain an ideal body weight General Shahla Dubon RMA documented as of this encounter Visit Diagnoses Diagnosis Right nephrolithiasis- Primary documented in this encounter Orders Nursing Count Last Ordered Date First Orde red Date AMB URO SURGERY COMM ORDER 1 09/12/2024 documented in this encounter Care Teams [employer] H[employer] Developer Relationship Specialty Start Date End Date Giovanny Romero MD [address] [place] [address] [address] [place] [address] PCP - General Internal Medicine 05/27/11 documented as of this encounter
--- OUTSIDE RECORDS SUMMARY | 2024-09-13 06:51 | XMS_ITS | Encounter Summary ---
Author [place] [address] Care Team Providers Care Mainframe Developer Name Role Phone Giovanny Romero MD Primary Care Provider [phone] Reason for Referral * Ultrasound (Routine) - Pending Review Specialty Diagnoses / Procedures Referred By Morenita larios Referred To Contact Radiology Diagnoses Right nephrolithiasis Procedures US RENAL AND BLADDER Trae Lagos MD [address] [place] [address] Phone: tel: fax: Referral ID Status Reason Start Date Expiration Date V isits Requested Visits Authorized [id number] Pending Review 09/13/2024 09/13/2025 1 1 Reason for Visit * Auth/Cert/Inpt Specialty Diagnoses / Procedures Referred By Morenita larios Referred To Contact Diagnoses Right nephrolithiasis Right nephrolithiasis [N20.0] Procedures ME CYSTO W/URETEROSCOPY W/LITHOTRIPSY ME CYSTO W/URETEROSCOPY W/RMVL/MANJ STONES CYSTOSCOPY, RIGHT URETEROSCOPY, LASER LITHOTRIPSY, RIGHT STENT PLACEMENT OR EXCHANGE Referral ID Status Reason Start Date Expiration Date Visits Re quested Visits Authorized [id number] 1 1 Encounter Details Date Type Department Care Team (Latest Contact Info) Description 09/13/2024 6:51 AM EDT - 09/13/2024 12:25 PM EDT Hospital Encounter [facility] SAME DAY SURGERY [facility] [place] [address] Trae Lagos MD [address] [place] [address] Preop testing (Primary Dx); Right nephrolithiasis Discharge Disposition: Home or Self Care Social [...] Sign Reading Time Taken Comments Blood Pressure 123/85 09/13/2024 12:09 PM EDT Pulse 64 09/13/2024 12:09 PM EDT Temperature 36.1 C (96.9 F) 09/13/2024 12:09 PM EDT Respiratory Rate 13 09/13/2024 12:09 PM EDT Oxygen Saturation 94% 09/13/2024 12:09 PM EDT Inhaled Oxygen Concentration - - Weight 74.8 kg (165 lb) 09/13/2024 7:12 AM EDT Height 149.9 cm (4' 11 ) 09/13/2024 7:12 AM EDT Body Mass Index 33.33 09/13/2024 7:12 AM EDT documented in this encounter Functional Status [...] No 10/19/2023 2:53 PM EDT Matthew James rayshawn PHILLIP Barragan * Because of a physical, mental or [...] this encounter Discharge Instructions * Discharge Instructions* Trae Lagos MD - 09/13/2024 8:24 AM EDT Images from the original note were not included. You had a stone removal today. The new stent is tied to a string which you can remove on Monday by pulling the string taped to your body. You will follow up in 3months with an ultrasound at that time. Take tylenol and ibuprofen for pain. Take your antibiotic for 7 days. Take the oxybutynin and the previous pain medication you have as needed for spasms. Frequent urination and blood in the urine is normal until the stent is out. If you become ill, call us or go the emergency room. If you don't hear form us, call our office at [phone] to arrange the follow up or surgery. [address] [place] [address] Trae Lagos MD [phone] +++++++++++++++++++++++++++++++++++++++++++++++++++++++++++++++++++ [facility] Discharge Instructions - Following Anesthesia We appreciate the opportunity to care for you today! Here are a few reminders as you head home: A responsible adult, 18 years or older must be in attendance until tomorrow morning. Rest quietly today. May resume usual diet as tolerated or as directed by your surgeon. Do not drive or operate any machinery until tomorrow morning or as instructed. Do not make any legal or important decisions for the next 24 hours. Do not drink alcoholic beverages or take sleeping pills for 24 hours unless otherwise directed. If you received a nerve block for post-operative pain control, protect your blocked arm/leg. It maybe numb. Carefully pad your limb to prevent pressure sores and other injuries. Be careful with applying cold/warm to the blocked limb. Numbness will alter the sensation of the limb and could damage your skin if you cannot correctly feel the temperature. If you have questions or concerns regarding your anesthesia experience, please call our office at . Get Well Soon! [facility] +++++++++++++++++++++++++++++++++++++++++++++++++++++++++++++++++++ documented in this encounter Medications at Time of Discharge albuterol (PROVENTIL HFA;VENTOLIN HFA) 90 mcg/actuation Inhl HFA Aerosol InhalerIndication s:Acute bronchitis, unspecified organism Inhale 2 Puffs into the lungs every 6 hours as needed. 1 Each 4 10/03/2023 azelastine (ASTELIN) 137 mcg (0.1 %) Nasl [place], Non-AerosolIndica tions:Acute bacterial sinusitis 2 Sprays in [...] Apply topically daily. 60 g 2 03/01/2024 ketorolac (TORADOL) 10 mg Oral Tablet Take 1 Tablet by mouth every 6 hours as needed for Pain. 12 Tablet 09/12/2024 meloxicam (MOBIC) 15 mg Oral TabletIndications :TMJ [...] per 24 hours 16 Tablet 5 12/08/2023 ondansetron (ZOFRAN-ODT) 4 mg Oral Tablet, Rapid Dissolve Dissolve 1 Tablet by mouth every 6 hours as needed for Nausea for up to 30 days. 12 Tablet 09/08/2024 5 ondansetron (ZOFRAN-ODT) 4 mg Oral Tablet, Rapid Dissolve Dissolve 1 Tablet by mouth every 6 hours as needed for Nausea for up to 30 days. 12 Tablet 09/08/2024 5 oxybutynin (DITROPAN-XL) 10 mg Oral Tablet Extended Rel 24 hr Take 1 Tablet by mouth daily. 15 Tablet 09/13/2024 5 sulfamethoxazole- trimethoprim (BACTRIM DS) 800-160 mg Oral Tablet Take 1 Tablet by mouth every 12 hours for 7 days. 14 Tablet 09/13/2024 5 tamsulosin (FLOMAX) 0.4 mg Oral Capsule Take 1 Capsule by mouth daily for 7 days. 7 Capsule 09/08/2024 5 documented as of this encounter Ordered Prescriptions Prescription Sig Dispense Quantity Refills Last Filled Start Date End Date oxybutynin (DITROPAN-XL) 10 mg Oral Tablet Extended Rel 24 hr Take 1 Tablet by mouth daily. 15 Tablet 09/13/2024 09/24/2024 sulfamethoxazole-t rimethoprim (BACTRIM DS) 800-160 mg Oral Tablet Take 1 Tablet by mouth every 12 hours for 7 days. 14 Tablet 09/13/2024 09/20/2024 documented in this encounter Discharge Disposition Disposition Code Departure Means Destination Comment s Home or Self Care Car Home documented in this encounter H&P Notes * Pedro Pittman NP - 09/13/2024 7:02 AM EDT [facility] History and Physical Name: Delilah Ortega ADDRESS: [address] [place] [address] : 1990 AGE: 33 y.o. Assessment: Right nephrolithiasis [N20.0] Plan: Procedure(s): CYSTOSCOPY, RIGHT URETEROSCOPY, LASER LITHOTRIPSY, RIGHT STENT PLACEMENT OR EXCHANGE per Trae Lagos MD Admitting Physician: Trae Lagos MD Date of Admit: 09/13/2024 Subjective SUBJECTIVE Chief Complaint: Right nephrolithiasis [N20.0] History of Present Illness: Patient is a 33 y.o. female with Right nephrolithiasis [N20.0] who presents for surgical intervention. Past Medical History: Diagnosis Date Asthma seasonal, uses inhaler Bladder problem 09/12/2024 kidney stones Heart murmur ? told by dentist Heartburn Migraine takes Nadolol Motion sickness Past Surgical History: Procedure Laterality Date ABDOMINOPLASTY 2017 BREAST ENHANCEMENT SURGERY Bilateral augmentation CYST REMOVAL from left ear HYMENECTOMY 03/15/2012 SURGICAL EXCISION HYMENAL REMNANT ; Surgeon: Brad Ayala MD; Location: [facility] MAIN OR; Service: Gynecology TYMPANOSTOMY TUBE PLACEMENT UMBILICAL HERNIA REPAIR N/A 10/25/2019 Robotic assisted laparoscopic umbilical hernia repair with mesh; Surgeon: Ayan Vásquez MD; Location: [facility] MAIN OR; Service: General Prior to Admission medications Medication Sig Start Date End Date Last Dose Authorizing Provider albuterol (PROVENTIL HFA;VENTOLIN HFA) 90 mcg/actuation Inhl HFA Aerosol Inhaler Inhale 2 Puffs into the lungs every 6 hours as needed. 10/03/23 Taking Giovanny Romero MD azelastine (ASTELIN) 137 mcg (0.1 %) Nasl [place], Non-Aerosol 2 Sprays in each nostril 2 times daily. Use in each nostril as directed Patient taking differently: 2 Sprays in each nostril 2 times daily. Use in each nostril as directeduses prn 12/08/23 Taking Differently Giovanny Romero MD ketorolac (TORADOL) 10 mg Oral Tablet Take 1 Tablet by mouth every 6 hours as needed for Pain. 09/12/24 09/12/2024 Trae Lagos MD ondansetron (ZOFRAN-ODT) 4 mg Oral Tablet, Rapid Dissolve Dissolve 1 Tablet by mouth every 6 hours as needed for Nausea for up to 30 days. 09/08/24 10/08/24 Taking Anna Etienne PA-C ondansetron (ZOFRAN-ODT) 4 mg Oral Tablet, Rapid Dissolve Dissolve 1 Tablet by mouth every 6 hours as needed for Nausea for up to 30 days. 09/08/24 10/08/24 Taking Erick Jimenez MD tamsulosin (FLOMAX) 0.4 mg Oral Capsule Take 1 Capsule by mouth daily for 7 days. 09/08/24 09/15/24 Taking Anna Etienne PA-C ubrogepant (UBRELVY) 50 mg Oral Tablet Take 1 Tablet by mouth as needed for Migraine. May repeat dose in 2 hours one time up to a maximum of 100mg per 24 hours 12/08/23 Taking Giovanny Romero MD erenumab-bobbi (AIMOVIG AUTOINJECTOR) 140 mg/mL SubQ Auto-Injector Subcutaneous (Inject under the skin) 1 mL every 30 days. Patient not taking: Reported on 09/12/2024 12/08/23 Not Taking Giovanny Romero MD erenumabcoreen (AIMOVIG AUTOINJECTOR) 70 mg/mL SubQ Auto-Injector Subcutaneous (Inject under the skin) 70 mg every 30 days. Patient not taking: Reported on 09/12/2024 10/03/23 Not Taking Giovanny Romero MD FLUoxetine (PROZAC) 40 mg Oral Capsule Take 1 Capsule by mouth daily. Patient not taking: Reported on 09/12/2024 12/08/23 Not Taking Giovanny Romero MD ketoconazole (NIZORAL) 2 % Top Cream Apply topically daily. Patient not taking: Reported on 09/12/2024 03/01/24 Not Taking Giovanny Romero MD meloxicam (MOBIC) 15 mg Oral Tablet Take 1 Tablet by mouth daily as needed for Pain. Patient not taking: Reported on 09/12/2024 02/10/23 Not Taking Giovanny Romero MD nadoloL (CORGARD) 40 mg Oral Tablet tablet nightly Patient not taking: Reported on 09/12/2024 10/03/23 Not Taking Giovanny Romero MD Allergies Allergen Reactions Penicillins Anaphylaxis Augmentin [Amoxicillin-Pot Clavulanate] Hives and Nausea And Vomiting Imitrex [Sumatriptan Succinate] Palpitations Social History Socioeconomic History Marital status: Spouse name: None Number of children: None Years of education: None Highest education level: None Tobacco Use Smoking status: Never Smokeless tobacco: Never Vaping Use Vaping status: Never Used Substance and Sexual Activity Alcohol use: Not Currently Comment: rarely Drug use: No Sexual activity: Yes Partners: Male control/protection: Surgical Family History Problem Relation Age of Onset Heart Disease Mother Migraines Mother Heart Disease Brother Diabetes Paternal Grandmother Migraines Paternal Grandmother Rheum Arthritis Neg Hx Osteoarthritis Neg Hx [...] Hx PKU Neg Hx Defects Neg Hx Anesth Problems Neg Hx Active Hospital Problems Diagnosis *Right nephrolithiasis Blood pressure 123/86, pulse 65, temperature 98.5 ??F (36.9 ??C), temperature source Oral, resp. rate 16, height 4' 11 (1.499 m), weight 165 lb (74.8 kg), last menstrual period 08/10/2024, SpO2 98%,not currently .Pain: 09/22 Review of Systems: The listed systems were reviewed and reveal the following in addition to any already discussed in the HPI: Review of Systems Constitutional: Negative. HENT: Negative for congestion, ear discharge, ear pain, hearing loss, nosebleeds and sore throat. Eyes: Negative for blurred vision, double vision, pain, discharge and redness. Respiratory: Negative. Negative for cough, hemoptysis, sputum production, shortness of breath and wheezing. Cardiovascular: Negative for chest pain, palpitations, orthopnea and leg swelling. Gastrointestinal: Negative. Genitourinary: Positive for dysuria, flank pain, frequency, hematuria and urgency. Hx or recurrent kidney stones. States she is having right flank pain with urgency/frequency and occasional hematuria. Skin: Negative. Neurological: Negative for dizziness, seizures, weakness and headaches. Endo/Heme/Allergies: Negative. Psychiatric/Behavioral: Negative for depression. The patient is nervous/anxious. Objective OBJECTIVE Physical Exam: Body mass index is 33.33 kg/m??. Body surface area is 1.7 meters squared. Physical Exam Vitals and nursing note reviewed. Exam conducted with a patent engineer present. Constitutional: General: She is not in acute distress. Appearance: She is well-developed. She is not diaphoretic. HENT: Head: Normocephalic. Mouth/Throat: Pharynx: No oropharyngeal exudate. Eyes: General: No scleral icterus. Right eye: No discharge. Left eye: No discharge. Conjunctiva/sclera: Conjunctivae normal. Pupils: Pupils are equal, round, and reactive to light. Neck: Thyroid: No thyromegaly. Vascular: No JVD. Trachea: No tracheal deviation. Cardiovascular: Rate and Rhythm: Normal rate and regular rhythm. Heart sounds: Normal heart sounds. No murmur heard. No friction rub. No gallop. Pulmonary: Effort: Pulmonary effort is normal. No respiratory distress. Breath sounds: Normal breath sounds. No stridor. No wheezing or rales. Chest: Chest wall: No tenderness. Abdominal: General: Bowel sounds are normal. Palpations: Abdomen is soft. Tenderness: There is no abdominal tenderness. There is right CVA tenderness. There is no guarding. Musculoskeletal: General: No tenderness or deformity. Normal range of motion. Cervical back: Normal range of motion and neck supple. Lymphadenopathy: Cervical: No cervical adenopathy. Skin: General: Skin is warm and dry. Coloration: Skin is not pale. Findings: No erythema or rash. Neurological: Mental Status: She is alert and oriented to person, place, and time. Psychiatric: Behavior: Behavior normal. Thought Content: Thought content normal. Judgment: Judgment normal. Labs: Latest Reference Range & Units 09/08/24 19:11 UA Color Colorless UA Glucose Negative mg/dL Negative UA Bili Negative Negative UA Ketones Negative mg/dL Negative UA Blood Negative 1+ (0.06 - 0.1 mg/dL) ! UA pH 5.0 - 8.0 pH 6.5 UA Protein Negative mg/dL Negative UA Urobilinogen <=1 mg/dL Normal UA Nitrite Negative Negative UA Leuk Est Negative Negative UA Spec Grav 1.001 - 1.035 no units 1.010 RBC, UA 0 - 3 /HPF 3 UA Mucus /LPF Trace UA Appear Clear Clear UA Squam Epi /LPF 3+ !: Data is abnormal Radiology: CT ABDOMEN AND PELVIS WITH CONTRAST (FAST), [...] mm calculus at the right ureteropelvic junction. EKG:None noted in review of records. Pedro Pittman NP 09/13/2024 Cosigned by Clark Ledezma MD at 09/13/2024 9:57 AM EDT documented in this encounter Procedure Notes * Trae Lagos MD - 09/13/2024 10:42 AM EDT Pre-procedure diagnosis: right nephrolithiasis Post-procedure diagnosis: same Procedure: cystoscopy, right ureteroscopy, stone manipulation, stent placement Specimens: stone Blood loss: minimal Findings: semirigid followed by flexible ureteroscopy with stone basketing and stent placement. Details of the procedure: Patient is brought back to the operating room and preoperative antibiotics given. Patient is placed in the dorsal lithotomy after anesthesia is induced and a time out is done confirming patient identity and procedure. Cystoscopy is performed with 22-Fr sheath using the 30 degree lens. The ureteral orifice is identified and cannulated with a sensor wire. Our semirigid ureteroscope was advanced into the ureter and up to the UPJ. No stone was identified. We replaced the semirigid scope with a flexible scope and went alongside the wire. Our flexible ureteroscope was then advanced into the renal pelvis where the stone was identified and basketed in thelower pole. A zero tip netinol basket was used to remove the stone in its entirety. A repeat ureteroscopy was then done. The scope was used to perform pyeloscopy and examine the entire ureter down tothe UVJ. No stone or ureteral injury was identified. We opted to use our safety wire and place a 6fr x 24cm ureteral stent on a string. Bladder drained, scope removed. Counts correct x2. No complications evident. Trae Lagos MD F/u: stent removal at home in 5d; 3mo with KORTNEY prior documented in this encounter Nursing Notes * Kristin Ambriz, KIRAN - 09/12/2024 2:33 PM EDT Images from the original note were not included. PREPARING FOR YOUR SURGERY Date of Surgery: 09/13/2024 Arrival time: Your surgeon may have already provided this, check your paperwork from the office. Ifnot received, call your surgeon's office. Location: [facility] Medications on the Day of Surgery Take the following medications on the morning of surgery: ubrelvy, Medications to hold prior to surgery; Verify with your doctor for possibly discontinuing the following medications: blood thinners, aspirin, or anti-inflammatories. Stop taking all supplements 7 days prior to your surgery. Food, Drinks, Tobacco Do not eat any food after midnight. This includes gum, mints, candy, chewing tobacco, and dip. Unless otherwise instructed by your surgeon, you may consume water, Gatorade, Powerade, black coffee/tea(no milk, no cream/creamers, no sugar) up to two hours prior to your scheduled arrival time. No exceptions or substitutions to these restrictions. Do not smoke, vape, or use any type of tobacco or marijuana products within 24 hours prior to surgery. Smoking will also slow your rate of healing. It is advised that you do not smoke during the healing process. No alcohol 24 hours prior to surgery. News Anchor It is important to have a News Anchor, someone who is 18 years or older, to accompany you and remain in the facility for the duration of your surgery. This person should be available for the Perioperative Team, which includes your surgeon, to communicate with before, during and after your surgery. Because you are receiving anesthesia, someone is needed to drive you home and remain with you for at least 24 hours after surgery to make sure you are safe during that time We also recommend that no children be present on the day of surgery. If you have a concern, please reach out to our department [phone]. Hygiene [place] your teeth and gargle the morning of surgery. Shower the morning of surgery or the night before. Do not wear makeup (including eye makeup) lotion, powder, deodorant, perfume, or cologne. Do not shave the operative extremity or near the operative area. Remove nail burmese prior to surgery. This includes artificial nails and gel nail burmese. Personal Items Wear clean, simple, loose-fitting clothing (no jeans) and sturdy shoes (no flip flops, slides or crocs) to the hospital. Do not bring unnecessary valuables with you. It is policy that [facility] does not assume responsibility for lost, stolen or broken personal items that are brought in. Exceptions may be consideredfor items which are considered necessary for your healthcare. These items will be formally documented. Remove all jewelry prior to surgery to prevent injury. We will not tape wedding rings/bands Remove all body piercings prior to arrival. Plastic inserts are acceptable. Bring with You Bring a copy of your Living Will and/or Durable Power of Hotel Attendant for Healthcare. Notify the Surgeon Notify your surgeon if you develop any illness (fever, cold, cough, sore throat, nausea, vomiting, skin rashes etc.) between now and surgery time Notify your surgeon and Pre-admission testing ([phone]) if you have any changes in your healthconditions or if any new medications are ordered between now and surgery.. Questions or Concerns? If you have any questions or concerns, feel free to call the Pre-Admission testing department at [phone]. We want to make sure you feel safe and have an excellent experience while you are here. Do not reply to this message through [employer] as it may not be answered promptly. Same Day Surgery Unit - [facility] at [phone]; Please get dropped off at Main Entrance 1A Stop[employer] front end software developer and they will direct you to registration. Parking will be to the left of the buildingin the parking lot and parking garage. After surgery, you will be discharged from surgery discharge door 4. - [address] [place] [phone]. DOORS OPEN AT 6:00 AM MON-MON AND 6:30 AM ON MONDAY Surgical Site Infections FAQs What is a Surgical Site Infection (SSI)? A surgical site infection is an infection that occurs after surgery in the part of the body where the surgery took place. Most patients who have surgery do not develop an infection. However, infections develop in about 1 to 3 out of every 100 patients who have surgery. Some of the common symptoms of a surgical site infection are: Redness and pain around the area where you had surgery Drainage of cloudy fluid from your surgical wound. Fever Can SSIs be treated? Yes. Most surgical site infections can be treated with antibiotics. The antibiotic given to you depends on the bacteria (germs) causing the infection. Sometimes patients with SSIs also need another surgery to treat the infection. What are some of the things that hospitals are doing to prevent SSIs? To prevent SSIs, doctors, nurses, and other healthcare providers: Clean their hands and arms up to their elbows with an antiseptic agent just before the surgery. Clean their hands with soap and water or an alcohol-based hand rub before and after caring for eachpatient. May remove some of your hair immediately before your surgery using electric clippers if the hair isin the same area where the procedure will occur. They should not shave you with a razor. Wear special hair covers, masks, gowns, and gloves during surgery to keep the surgery area clean. Give you antibiotics before your surgery starts. In most cases, you should get antibiotics within 60 minutes before the surgery starts and the antibiotics should be stopped within 24 hours after surgery. Clean the skin at the site of your surgery with a special soap that kills germs. What can I do to help prevent SSIs? Before your surgery: Tell your doctor about other medical problems you may have. Health problems such as allergies, diabetes, and obesity could affect your surgery and your treatment. Quit smoking. Patients who smoke get more infections. Talk to your doctor about how you can quit before your surgery. Do not shave near where you will have surgery. Shaving with a razor can irritate your skin and makeit easier to develop an infection. At the time of your surgery: Speak up if someone tries to shave you with a razor before surgery. Ask why you need to be shaved and talk with your surgeon if you have any concerns. Ask if you will get antibiotics before surgery. After your surgery: Make sure that your healthcare providers clean their hands before examining you, either with soap and water or an alcohol-based hand rub. If you do not see your providers clean their hands, please ask them to do so. Family and friends who visit you should not touch the surgical wound or dressings. Family and friends should clean their hands with soap and water or an alcohol- based hand rub beforeand after visiting you. If you do not see them clean their hands, ask them to clean their hands. What do I need to do when I go home from the hospital? Before you go home, your doctor or nurse should explain everything you need to know about taking care of your wound. Make sure you understand how to care for your wound before you leave the hospital. Always clean your hands before and after caring for your wound. Before you go home, make sure you know who to contact if you have questions or problems after you get home. If you have any symptoms of an infection, such as redness and pain at the surgery site, drainage, or fever, call your doctor immediately. If you have additional questions, please ask your doctor or nurse. Developed and co-sponsored by The Society for Healthcare Epidemiology of [place] (PRIETO); InfectiousDiseases Society of [place] (IDSA); [employer] [facility] [employer]; Association for Professionals inInfection Control and Epidemiology (APIC); Centers for Disease Control and Prevention (CDC); and The Joint Commission. This information is not intended to replace advice given to you by your health care provider. Make sure you discuss any questions you have with your health care provider. , ANESTHESIA - COMMON SIDE EFFECTS (if present, these should resolve within 24 hours) TIREDNESS SHIVERING DIZZINESS DRY MOUTH MILD NAUSEA/VOMITING SORE THROAT OR HOARSENESS MILD PAIN OR DISCOMFORT IS NORMAL CALL THE SURGEON DAY OR NIGHT You have nausea or vomiting that doesn???t go away by the next morning. You experience severe pain not relieved by suggested medications. Thank you for letting us care for you. documented in this encounter Plan of Treatment Upcoming Encounters Date Type Department Care Team (Late st Contact Info) Description 12/13/2024 9:30 AM EDT Office Visit [facility] [address] [place] [id number] Ashley Campbell, ISABEL [address] [place] [address] 01/27/2025 8:30 AM EST Office Visit [facility] [address] [facility] [address] [place] [address] Kristal Hargrove CNM [address] [place] [address] Scheduled Orders Name Type Priority Associated Diagnoses Orde r Schedule US RENAL AND BLADDER Imaging Routine Right nephrolithiasis Expected: 12/14/2024, Expires: 09/13/2025 documented as of this encounter Goals Goal Patient Goal Type Associated Problems Recent Progress Patient-Stated? Author Maintain a healthy diet, exercise regularly and maintain an ideal body weight General No Shahla Malik RMA documented as of this encounter Procedures Procedure Name Priority Date/Time Associated Diagnosis Comments SCANNED RHYTHM STRIPS 09/16/2024 11:10 AM EDT CALCULI (STONE) ANALYSIS - REF LAB Routine 09/13/2024 10:38 AM EDT Right nephrolithiasis ME CYSTO W/URETEROSCOPY W/LITHOTRIPSY 09/13/2024 10:11 AM EDT Right nephrolithiasis POCT URINE Routine 09/13/2024 8:04 AM EDT Preop testing Right nephrolithiasis documented in this encounter Results * SCANNED RHYTHM STRIPS (09/16/2024 11:10 AM EDT) Anatomical Region Laterality Modality Other 09/16/2024 11:1 0 AM EDT us Unknown Provider IMG ECG ORDERABLES Final Result * CALCULI (STONE) ANALYSIS - REF LAB (09/13/2024 10:38 AM EDT) Calculi Comp See Note 09/18/2024 10:06 AM EDT [facility] Comment: Calculi composed primarily of calcium oxalate monohydrate. INTERPRETIVE INFORMATION: Calculi (Stone) analysis Calculi are the products of physiological processes that yield crystalline compounds in a matrix of biological compounds and blood. Matrix components are not reported. The clinically significant crystalline components identified in calculi specimens are reported. Gross description may not be consistent with composition determined by FTIR analysis. Performed By: [employer] [address] [place] [id number] Technical Support Director: Pepe Xie MD, PhD CLIA Number: [id number] Calculi Mass 70 mg 09/18/2024 10:06 AM EDT [employer] Calculi Desc See Note 09/18/2024 10:06 AM EDT [employer] [facility] Comment: Specimen consists of one brown and mark calculus. The total weight is 70 mg. Calculus STRUCTURE OF RIGHT URETER / Unknown 09/13/2024 10:38 AM EDT 09/13/2024 12:30 PM EDT Trae Lagos MD MICROBIOLOGY - GENERAL ORDER GALDINO Final Result Performing Organization Address City/[facility]/ZIP Co de Phone Number [facility] [address] [place] [phone] * POCT URINE (09/13/2024 8:04 AM EDT) Preg Test, Ur negative [facility] NUR[facility] Lot Number [id number] [facility] Expiration Date 11/12/25 [facility] SeriAl # [facility] Control Line Yes YES/NO [facility] 09/13/2024 8:04 AM EDT Anitha Freed STONE RIGGER POINT OF CARE TEST ORDERABLE S Final Result Performing Organization Address [facility] de Phone Number [facility] [address] [phone] documented in this encounter Visit Diagnoses Diagnosis Right nephrolithiasis- Primary Preop testing Preoperative examination, unspecified Right nephrolithiasis documented in this encounter Admitting Diagnoses Diagnosis Right nephrolithiasis documented in this encounter Administered Medications Inactive Administered Medications - up to 1 most recent administrations Medication Order MAR Action Action Date Dose Rate Site acetaminophen (TYLENOL) tablet 1,000 mg 1,000 mg, Oral, PREPROCEDURE, 1 dose, Starting on Mon09/13/24 at 0710, Until Mon09/13/24 at 0730, Coanalgesic, Do not give if patient received acetaminophen within the last 6 hours Maximum adult dose of acetaminophen is 4000 mg from all sources in 24 hours., Pre-op (Holding/SDS Meds) Given 09/13/2024 7:30 AM EDT 1,000 mg ketorolac (TORADOL) injection 30 mg 30 mg, Intravenous, ONCE, 1 dose, On Mon09/13/24 at 0730, For IV Administration: Give undiluted over at least 15 seconds. Maximum IV dose is 30mg. For IM Administration: Give undiluted, slowly and deeply into the muscle., Pre-op (Holding/SDS Meds) Given 09/13/2024 7:50 AM EDT 30 mg lactated ringers infusion Intravenous, at 50 mL/hr, PREPROCEDURE CONTINUOUS, Starting on Mon09/13/24 at 0710, Until Mon09/13/24 at 1626, To be given in SDS/Pre-op Holding Area, Pre-op (Holding/SDS Meds) IV Restarted 09/13/2024 10:11 AM EDT ondansetron (ZOFRAN) injection 4 mg 4 mg, Intravenous, ONCE PRN, 1 dose, Starting on Mon09/13/24 at 1039, Until Mon09/13/24 at 1626, Nausea, Do not give if patient received granisetron (Kytril) or ondansetron (Zofran) within 4 hours., PACU ondansetron (ZOFRAN-ODT) disintegrating tablet 8 mg 8 mg, Oral, ONCE PRN, 1 dose, Starting on Mon09/13/24 at 1039, Until Mon09/13/24 at 1626, Nausea, Do not give if patient received granisetron (Kytril) or ondansetron (Zofran) within 4 hours., PACU promethazine (PHENERGAN) 12.5 mg in sodium chloride 0.9% 10 mL injection 12.5 mg, Intravenous, PRN, Starting on Mon09/13/24 at 1039, Until Mon09/13/24 at 1626, Nausea, Second Line Antiemetic, For nausea unrelieved by droperidol or pre-op antiemetic. Begin with lowest dose unless otherwise directed. Give remainder of dose if nausea unrelieved in 20 minutes. Not to exceed 25 mg in one hour unless otherwise ordered by Anesthesia Coordinator. VESICANT , PACU promethazine (PHENERGAN) 6.25 mg in sodium chloride 0.9% 10 mL injection 6.25 mg, Intravenous, PRN, Starting on Mon09/13/24 at 1039, Until Mon09/13/24 at 1626, Nausea, Second Line Antiemetic, For nausea unrelieved by droperidol or pre-op antiemetic. Begin with lowest dose unless otherwise directed. Give remainder of dose if nausea unrelieved in 20 minutes. Not to exceed 25 mg in one hour unless otherwise ordered by Anesthesia Coordinator. VESICANT , PACU scopolamine (TRANSDERM-SCOP) 1 mg over 3 days 1 Patch 1 Patch, Transdermal, ONCE PREPROCEDURE, 1 dose, On Mon09/13/24 at 0715, Place patch behind ear. Remove in 24 hours. To be given in SDS/Pre-op Holding Area. Transderm-Scop patch delivers scopolamine 1 mg per 72 hours, Administer over 24 Hours, Pre-op (Holding/SDS Meds) Patch Applied 09/13/2024 7:30 AM EDT 1 Patch Left Ear documented in this encounter Discontinued Medications Medication Sig Discontinue Reason Start Date End Da te azithromycin (ZITHROMAX) 250 mg Oral Tablet Take 2 tablets (500 mg) on Day 1, followed by 1 tablet (250 mg) once daily on Days 2 through 5. DELETE-Therapy completed 02/22/2024 09/12/2024 documented as of this encounter Active and Recently Administered Medications Times are shown in EDT. Scheduled Medication Order 09/11/2024 09/12/2024 09/13/2024 ciprofloxacin in 5 % dextrose (CIPRO) IVPB 400 mg (COMPLETED) 400 mg, Intravenous, COMIC ARTIST TO O.R., 1 dose, On Mon09/13/24 at 0700, Administer over 60 Minutes, Reason for Therapy: Surgical Prophylaxis 1022 (Given - Provid er: Rebecca Brantley CRNA) ketorolac (TORADOL) injection 30 mg (COMPLETED) 30 mg, Intravenous, ONCE, 1 dose, On Mon09/13/24 at 0730, For IV Administration: Give undiluted over at least 15 seconds. Maximum IV dose is 30mg. For IM Administration: Give undiluted, slowly and deeply into the muscle., Pre-op (Holding/SDS Meds) 0750 (Given - Provid er: Rebecca Hopper RN) scopolamine (TRANSDERM-SCOP) 1 mg over 3 days 1 Patch 1 Patch, Transdermal, ONCE PREPROCEDURE, 1 dose, On Mon09/13/24 at 0715, Place patch behind ear. Remove in 24 hours. To be given in SDS/Pre-op Holding Area. Transderm-Scop patch delivers scopolamine 1 mg per 72 hours, Administer over 24 Hours, Pre-op (Holding/SDS Meds) 0730 (Patch Applied - Provider: Rebecca Hopper RN)1225 (Due: Patch Removed - Provider: Automatic Discharge Provider - Comment: Time automatically adjusted from order being discontinued) PRN Medication Order 09/11/2024 09/12/2024 09/13/2024 acetaminophen (TYLENOL) tablet 1,000 mg (COMPLETED) 1,000 mg, Oral, PREPROCEDURE, 1 dose, Starting on Mon09/13/24 at 0710, Until Mon09/13/24 at 0730, Coanalgesic, Do not give if patient received acetaminophen within the last 6 hours Maximum adult dose of acetaminophen is 4000 mg from all sources in 24 hours., Pre-op (Holding/SDS Meds) 0730 (Given - Provid er: Rebecca Hopper RN) dimenhyDRINATE (DRAMAMINE) 12.5-25 mg in sodium chloride 0.9% injection 12.5-25 mg, Intravenous, PRN, Starting on Mon09/13/24 at 1039, Until Mon09/13/24 at 1626, Nausea, Third Line Antiemetic, For persistent nausea unrelieved by other antiemetics. Begin with lowest dose unless otherwise directed. Give remainder of dose if nausea unrelieved in 20 minutes. May give total of two doses if needed. dilute each 50 mg with 10 mL 0.9% saline for IV use, PACU droPERidol (INAPSINE) injection 0.625 mg 0.625 mg, Intravenous, PRN, Starting on Mon09/13/24 at 1039, Until Mon09/13/24 at 1626, Nausea, If unable to give zofran. Give second dose if nausea unrelieved in 10 minutes. May give total of two doses if needed., PACU fentaNYL (SUBLIMAZE) injection 25 mcg 25 mcg, Intravenous, EVERY 5 MIN PRN, Starting on Mon09/13/24 at 1039, Until Mon09/13/24 at 1626, Pain, For initial pain. Maximum dose not to exceed 100 mcg., PACU HYDROmorphone (DILAUDID) injection 0.25 mg 0.25 mg, Intravenous, EVERY 10 MIN PRN, Starting on Mon09/13/24 at 1039, Until Mon09/13/24 at 1626, Breakthrough Pain, Do not exceed 2 mg in one hour unless otherwise ordered by the Anesthesia Coordinator For pain unrelieved by fentanyl or oral opioid, PACU lactated ringers infusion Intravenous, at 50 mL/hr, PREPROCEDURE CONTINUOUS, Starting on Mon09/13/24 at 0710, Until Mon09/13/24 at 1626, To be given in SDS/Pre-op Holding Area, Pre-op (Holding/SDS Meds) 0754 (New Bag - Prov ider: Rebecca Hopper, KIRAN)1010 (IV Paused - Provider: Rebecca Brantley CRNA - Comment: Switch to gravity)1011 (IV Restarted - Provider: Rebecca Brantley CRNA)1045 (Anesthesia Volume Adjustment - Provider: Rebecca Brantley CRNA)1159 (Stopped - Provider: Anitha Cowart RN) lidocaine HCL (GLYDO) 2 % mucosal jelly 2% (CANCELED) INTRAPROCEDURE, Starting on Mon09/13/24 at 1032, Until Mon09/13/24 at 1225, Intra-op 1032 (Given - Provid er: Trae Lagos MD) ondansetron (ZOFRAN) injection 4 mg(Linked Group 1) 4 mg, Intravenous, ONCE PRN, 1 dose, Starting on Mon09/13/24 at 1039, Until Mon09/13/24 at 1626, Nausea, Do not give if patient received granisetron (Kytril) or ondansetron (Zofran) within 4 hours., PACU ondansetron (ZOFRAN-ODT) disintegrating tablet 8 mg(Linked Group 1) 8 mg, Oral, ONCE PRN, 1 dose, Starting on Mon09/13/24 at 1039, Until Mon09/13/24 at 1626, Nausea, Do not give if patient received granisetron (Kytril) or ondansetron (Zofran) within 4 hours., PACU oxyCODONE (ROXICODONE) immediate release tablet 5 mg 5 mg, Oral, EVERY 1 HOUR PRN, Starting on Mon09/13/24 at 1039, Until Mon09/13/24 at 1626, Pain, When tolerating oral intake. Maximum dose not to exceed 10 mg unless otherwise directed by the Anesthesia Coordinator., PACU promethazine (PHENERGAN) 12.5 mg in sodium chloride 0.9% 10 mL injection(Linked Group 2) 12.5 mg, Intravenous, PRN, Starting on Mon09/13/24 at 1039, Until Mon09/13/24 at 1626, Nausea, Second Line Antiemetic, For nausea unrelieved by droperidol or pre-op antiemetic. Begin with lowest dose unless otherwise directed. Give remainder of dose if nausea unrelieved in 20 minutes. Not to exceed 25 mg in one hour unless otherwise ordered by Anesthesia Coordinator. VESICANT , PACU promethazine (PHENERGAN) 6.25 mg in sodium chloride 0.9% 10 mL injection(Linked Group 2) 6.25 mg, Intravenous, PRN, Starting on Mon09/13/24 at 1039, Until Mon09/13/24 at 1626, Nausea, Second Line Antiemetic, For nausea unrelieved by droperidol or pre-op antiemetic. Begin with lowest dose unless otherwise directed. Give remainder of dose if nausea unrelieved in 20 minutes. Not to exceed 25 mg in one hour unless otherwise ordered by Anesthesia Coordinator. VESICANT , PACU Linked Groups Order Group 1: ondansetron (ZOFRAN) injection 4 mgJump to med 4 mg, Intravenous, ONCE PRN, 1 dose, Starting on Mon09/13/24 at 1039, Until Mon09/13/24 at 1626, Nausea, Do not give if patient received granisetron (Kytril) or ondansetron (Zofran) within 4 hours., PACU Or ondansetron (ZOFRAN-ODT) disintegrating tablet 8 mgJump to med 8 mg, Oral, ONCE PRN, 1 dose, Starting on Mon09/13/24 at 1039, Until Mon09/13/24 at 1626, Nausea, Do not give if patient received granisetron (Kytril) or ondansetron (Zofran) within 4 hours., PACU Group 2: promethazine (PHENERGAN) 6.25 mg in sodium chloride 0.9% 10 mL injectionJump to med 6.25 mg, Intravenous, PRN, Starting on Mon09/13/24 at 1039, Until Mon09/13/24 at 1626, Nausea, Second Line Antiemetic, For nausea unrelieved by droperidol or pre-op antiemetic. Begin with lowest dose unless otherwise directed. Give remainder of dose if nausea unrelieved in 20 minutes. Not to exceed 25 mg in one hour unless otherwise ordered by Anesthesia Coordinator. VESICANT , PACU Or promethazine (PHENERGAN) 12.5 mg in sodium chloride 0.9% 10 mL injectionJump to med 12.5 mg, Intravenous, PRN, Starting on Mon09/13/24 at 1039, Until Mon09/13/24 at 1626, Nausea, Second Line Antiemetic, For nausea unrelieved by droperidol or pre-op antiemetic. Begin with lowest dose unless otherwise directed. Give remainder of dose if nausea unrelieved in 20 minutes. Not to exceed 25 mg in one hour unless otherwise ordered by Anesthesia Coordinator. VESICANT , PACU documented in this encounter Orders Medications Ordered That Sudeep ht Not Have Been Administered Count Last Ordered Date First Ordered Date ciprofloxacin in 5 % dextros e (CIPRO) IVPB 400 mg 1 09/13/2024 dimenhyDRINATE (DRAMAMINE) 1 2.5-25 mg in sodium chloride 0.9% injection 1 09/13/2024 droPERidol (INAPSINE) injection 0.625 mg 1 09/13/2024 fentaNYL (SUBLIMAZE) injection 25 mcg 1 02/2024 HYDROmorphone (DILAUDID) injection 0.25 mg 1 09/13/2024 lidocaine HCL (GLYDO) 2 % mucosal jelly 2% 1 09/13/2024 ondansetron (ZOFRAN) injection 4 mg 1 09/13 ondansetron (ZOFRAN-ODT) dis integrating tablet 8 mg 1 09/13/2024 oxyCODONE (ROXICODONE) immed iate release tablet 5 mg 2 09/13/2024 promethazine (PHENERGAN) 12. 5 mg in sodium chloride 0.9% 10 mL injection 1 09/13/2024 promethazine (PHENERGAN) 6.2 5 mg in sodium chloride 0.9% 10 mL injection 1 09/13/2024 Discharge Count Last Ordered Date First Orde red Date DISCHARGE PATIENT 1 09/13/2024 documented in this encounter Care Teams Mainframe Developer Relationship Specialty Start Date End Date Giovanny Romero MD [id number] [facility] [address] [place] [address] PCP - General Internal Medicine 05/27/11 documented as of this encounter
--- OUTSIDE RECORDS SUMMARY | 2024-09-13 09:10 | XMS_ITS | Encounter Summary ---
Author Organization [facility] [place] [address] Care Team Providers Care Paper Rewinder Name Role Phone Giovanny Romero MD Primary Care Provider [phone]- [phone] Reason for Visit * Auth/Cert/Inpt Specialty Diagnoses / Procedures Referred By Morenita larios Referred To Contact Diagnoses Right nephrolithiasis Right nephrolithiasis [N20.0] Procedures [place] CYSTO W/URETEROSCOPY W/LITHOTRIPSY W[place] CYSTO W/URETEROSCOPY W/RMVL/MANJ STONES CYSTOSCOPY, RIGHT URETEROSCOPY, LASER LITHOTRIPSY, RIGHT STENT PLACEMENT OR EXCHANGE Referral ID Status Reason Start Date Expiration Date Visits Re quested Visits Authorized [id number] 1 1 Encounter Details Date Type Department Care Team (Late st Contact Info) Description 09/13/2024 9:10 AM EDT - 09/13/2024 10:10 AM EDT Surgery FTT PERIOP [address] . [facility] [place] [address] Trae Lagos MD [address] [place], [place] [id number] CYSTOSCOPY,URETEROSCOP Y,LASER LITHOTRIPSY,STENT EXCHANGE Surgery Details Date/Time Status Location OR Service Patient Class Case Class Case Type Trauma Case? 09/13/2024 9:10 AM Posted FTT MAIN OR FTT CYSTO/ OR 1 Urology Same Day Surgery Elective Panel 1 Procedure LRB Anes Op Region Wound Class Comments CYSTOSCOPY,URETEROSC OPY,LASER LITHOTRIPSY,STENT EXCHANGE Right General Clean Contaminated CYSTOSCOPY, RIGHT URETEROSCOPY,RIGHT STENT PLACEMENT, STONE MANIPULATION Surgeon Surgeon Role Service Panel Trae Lagos MD Primary Urology 1 documented in this encounter Social History Tobacco Use Types Packs/Day Years [...] Sign Reading Time Taken Comments Blood Pressure 123/86 09/13/2024 7:54 AM EDT Pulse 65 09/13/2024 7:54 AM EDT Temperature 36.9 C (98.5 F) 09/13/2024 7:54 AM EDT Respiratory Rate 16 09/13/2024 7:54 AM EDT Oxygen Saturation 98% 09/13/2024 7:54 AM EDT Inhaled Oxygen Concentration - - Weight [...] string which you can remove on Monday morning by pulling the string taped to your [...] hear form us, call our office at [phone] to arrange the follow up or surgery. [address] [place] [address] Trae Lagos MD [phone] +++++++++++++++++++++++++++++++++++++++++++++++++++++++++++++++++++ [facility] Discharge Instructions - Following Anesthesia We [...] our office at . Get Well Soon! [facility] Anesthesia +++++++++++++++++++++++++++++++++++++++++++++++++++++++++++++++++++ documented in this encounter Medications at Time of Discharge albuterol (PROVENTIL HFA;VENTOLIN HFA) 90 mcg/actuation Inhl HFA Aerosol InhalerIndication s:Acute bronchitis, unspecified organism Inhale 2 Puffs into the lungs every 6 hours as needed. 1 Each 4 10/03/2023 azelastine (ASTELIN) 137 mcg (0.1 %) Nasl [place], Non-AerosolIndica tions:Acute bacterial sinusitis 2 Sprays in [...] Pittman NP - 09/13/2024 7:02 AM EDT [facility] History and Physical Name: Delilah Ortega ADDRESS: [address] [place] [address] : 1990 AGE: 33 y.o. Assessment: Right [...] REMNANT ; Surgeon: Brad Ayala MD; Location: [facility] MAIN OR; Service: Gynecology TYMPANOSTOMY TUBE PLACEMENT UMBILICAL HERNIA REPAIR N/A 10/25/2019 Robotic assisted laparoscopic umbilical hernia repair with mesh; Surgeon: Ayan Vásquez MD; Location: [facility] MAIN OR; Service: General Prior to Admission medications Medication Sig Start Date End Date Last Dose Authorizing Provider albuterol (PROVENTIL HFA;VENTOLIN HFA) 90 mcg/actuation Inhl HFA Aerosol Inhaler Inhale 2 Puffs into the lungs every 6 hours as needed. 10/03/23 Taking Giovanny Romero MD azelastine (ASTELIN) 137 mcg (0.1 %) Nasl [place], Non-Aerosol 2 Sprays in each nostril 2 [...] 24 hours 12/08/23 Taking Giovanny Romero MD erenumab-aooe (AIMOVIG AUTOINJECTOR) 140 mg/mL SubQ Auto-Injector Subcutaneous (Inject under the skin) 1 mL every 30 days. Patient not taking: Reported on 09/12/2024 12/08/23 Not Taking Giovanny Romero MD erenumab-aooe (AIMOVIG AUTOINJECTOR) 70 mg/mL SubQ Auto-Injector [...] nursing note reviewed. Exam conducted with a customer service engineer present. Constitutional: General: She is not [...] Ifnot received, call your surgeon's office. Location: [place] Medications on the Day of Surgery Take [...] No alcohol 24 hours prior to surgery. Development Coach It is important to have a Development Coach, someone who is 18 years or older, [...] concern, please reach out to our department [phone]. Hygiene [place] your teeth and gargle the morning of surgery. Shower the morning of surgery or the night before. Do not wear makeup (including eye makeup) lotion, powder, deodorant, perfume, or cologne. Do not shave the operative extremity or near the operative area. Remove nail danish prior to surgery. This includes artificial nails and gel nail danish. Personal Items Wear clean, simple, loose-fitting clothing (no jeans) and sturdy shoes (no flip flops, slides or crocs) to the hospital. Do not bring unnecessary valuables with you. It is policy that [facility] does not assume responsibility for lost, stolen [...] your Living Will and/or Durable Power of Movie Writer for Healthcare. Notify the Surgeon Notify your surgeon if you develop any illness (fever, cold, cough, sore throat, nausea, vomiting, skin rashes etc.) between now and surgery time Notify your surgeon and Pre-admission testing ([phone]) if you have any changes in your healthconditions or if any new medications are ordered between now and surgery.. Questions or Concerns? If you have any questions or concerns, feel free to call the Pre-Admission testing department at [phone]. We want to make sure you feel safe and have an excellent experience while you are here. Do not reply to this message through Postabon as it may not be answered promptly. Same Day Surgery Unit - [facility] at [phone]; Please get dropped off at Main Entrance 1A [employer] front end software developer and they will direct you to registration. Parking will be to the left of the buildingin the parking lot and parking garage. After surgery, you will be discharged from surgery discharge door [address]. [address] [address]. DOORS OPEN AT 6:00 AM MON-MON AND [...] Bev (PRIETO); InfectiousDiseases Society of Bev (IDSA); [facility]; Association for Professionals inInfection Control [...] EDT Office Visit [facility] [address] [place] [phone] Ashley Campbell, ISABEL [address] [place] [address] 01/27/2025 8:30 AM EST Office Visit [facility] [address] [place] [phone] Kristal Hargrove, [facility] [address] [place] [address] Scheduled Orders Name Type Priority [...] Routine 09/13/2024 10:38 AM EDT Right nephrolithiasis WY CYSTO W/URETEROSCOPY W/LITHOTRIPSY 09/13/2024 10:11 AM EDT [...] Comp See Note 09/18/2024 10:[address] [facility] [place] Comment: Calculi composed primarily of calcium oxalate monohydrate. INTERPRETIVE INFORMATION: Calculi (Stone) analysis Calculi are the products of physiological processes that yield crystalline compounds in a matrix of biological compounds and blood. Matrix components are not reported. The clinically significant crystalline components identified in calculi specimens are reported. Gross description may not be consistent with composition determined by FTIR analysis. Performed By: [facility] [address] [place] [id number] Secretarial Stenographer: Pepe Xie MD, PhD CLIA Number: [id number] Calculi Mass 70 mg 09/18/2024 10:06 AM EDT [facility] Calculi Desc See Note 09/18/2024 10:06 AM EDT [facility] [employer] Comment: Specimen consists of one brown and mark calculus. The total weight is 70 mg. Calculus STRUCTURE OF RIGHT URETER / Unknown 09/13/2024 10:38 AM EDT 09/13/2024 12:30 PM EDT Trae Lagos MD MICROBIOLOGY - GENERAL ORDER GALDINO Final Result [facility] [address] [place] [address] * POCT URINE (09/13/2024 8:04 AM EDT) Preg Test, Ur negative [facility] Lot Number [id number] [facility] Expiration Date 11/12/25 [facility] SeriAl # [facility] Control Line Yes YES/NO [facility] 09/13/2024 8:04 AM EDT Anitha Freed GASOLINE TESTER POINT OF CARE TEST ORDERABLE S Final Result Performing Organization Address [facility] de Phone Number [facility] [address] [place] [address], [facility] [phone] documented in this encounter Visit Diagnoses Diagnosis Right nephrolithiasis- Primary Preop testing Preoperative examination, unspecified Right nephrolithiasis Right nephrolithiasis documented in this encounter Admitting [...] Meds) IV Restarted 09/13/2024 10:11 AM EDT lidocaine HCL (GLYDO) 2 % mucosal jelly 2% INTRAPROCEDURE, Starting on Mon09/13/24 at 1032, Until Mon09/13/24 at 1225, Intra-op Given 09/13/2024 10:32 AM EDT 11 mL ondansetron (ZOFRAN) injection 4 mg 4 mg, [...] IVPB 400 mg (COMPLETED) 400 mg, Intravenous, CHUCK WAGON DRIVER TO O.R., 1 dose, On Mon09/13/24 at [...] 0754 (New Bag - Prov ider: Rebecca Hopper RN)1010 (IV Paused - Provider: Rebecca Brantley CRNA [...] HYDROmorphone (DILAUDID) injection 0.25 mg 1 09/13/2024 ondansetron (ZOFRAN) injection 4 mg [...] 09/13/2024 documented in this encounter Care Teams Paper Rewinder Relationship Specialty Start Date End Date Giovanny Romero MD [address] [facility] [address] [place] [address] PCP - General Internal Medicine 05/27/11 documented as of this encounter
--- OUTSIDE RECORDS SUMMARY | 2024-09-13 10:11 | XMS_ITS | Encounter Summary ---
Author Organization [facility] [address] Care Team Providers Care Regional Production Manager Name Role Phone Giovanny Romero MD Primary Care Provider +1- [phone] Reason for Visit * Auth/Cert/Inpt Specialty Diagnoses / Procedures Referred By Morenita larios Referred To Contact Diagnoses Right nephrolithiasis Right nephrolithiasis [N20.0] Procedures [place] CYSTO W/URETEROSCOPY W/LITHOTRIPSY NH CYSTO W/URETEROSCOPY W/RMVL/MANJ STONES CYSTOSCOPY, RIGHT URETEROSCOPY, LASER LITHOTRIPSY, RIGHT STENT PLACEMENT OR EXCHANGE Referral ID Status Reason Start Date Expiration Date Visits Re quested Visits Authorized [id number] 1 1 Encounter Details Date Type Department Care Team (Late st Contact Info) Description 09/13/2024 10:11 AM EDT Anesthesia Event FTT PERIOP [address] [place] [address] Renate Liao MD [address] [place] [address] [place] [address] Anitha Freed APRN [address] [place] [address] Anesthesia Record Procedure Summary Procedure Name Responsible Anesthesiologist Anesthesia Start Time Anesthesia Stop Time CYSTOSCOPY,URETEROS COPY,LASER LITHOTRIPSY,STENT EXCHANGE (Right) Renate Liao MD 09/13/24 1011 09/13/24 1046 Events Date Time Event Comment 09/13/2024 0824 1005 AN Equip Check 1011 An Start 1014 An Start Data 1016 Immediate Pre Anesthetic Ass es 1017 An Induction 1020 An Intubation 1021 Anesthesia Ready 1024 Time out 1025 Incision 1038 An Emergence 1045 An Extubation 1045 an stop data 1046 An Stop 1046 Handoff I completed my SBAR handoff to the receiving nurse which has included the followin. Identification of the patient, family, or patient surrogate 2. Identification of the responsible practitioner 3. Pertinent medical history 4. Surgical procedure and reason for procedure 5. Intraoperative anesthetic management 6. All current lines, drains and respiratory support. 7. Outstanding follow up orders (X-rays, consults etc) 8. Expectations/Plans for the early post-procedure period 9. Opportunity for questions and acknowledgement of understanding from the receiving PACU/ICU teamcenter consultant Meds Name Total midazolam (VERSED) injection 1 mg/mL 2 m g lidocaine injection 1% 50 mg fentaNYL 50 MCG/ML INJ 100 mcg propofol (DIPRIVAN) injection 200 mg rocuronium (ZEMURON) 10 mg/mL injection 40 mg dexamethasone (DECADRON) injection 4 mg/ mL 8 mg ondansetron (ZOFRAN) injection 4 mg /2 m L 4 mg sugammadex (BRIDION) 100 mg/mL injection 200 mg ciprofloxacin in 5 % dextrose (CIPRO) IV PB 400 mg 400 mg lidocaine 4 % ([id number]) laryngotrac heal solution 4 mL lactated ringers infusion 600 mL * Agents Name O2 N2O Air Et Sevoflurane Et Desflurane * Blood No blood administrations on file. Lines, Drains, and Airways Type Details Placement Removal Peripheral IV 09/13/24; 0745; Left ; Hand; isis deleon; 09/13/24; 1214; Therapy completed, Discharged, Per Protocol; Dressing applied, Catheter intact, No Complications 09/13/24 0745 by Rebecca Hopper, KIRAN 09/13/24 1214 by Anitha Cowart, RN Airway Device: ETT- Cuffed; Size: 7 mm; Placement Date: 09/13/24; Placement Time: 1020 (created via procedure documentation); Removal Date: 09/13/24; Removal Time: 1045 09/13/24 1020 by Rebecca Brantley CRNA 09/13/24 1045 by Rebecca Brantley CRNA Incision/Wound 09/13/24; 1024; Uret hra; 09/13/24; 1626 09/13/24 1024 by Padma Hebert RN 09/13/24 1626 by Discharge Provider, Rudy documented in this encounter Social History Tobacco [...] on file documented as of this encounter Functional Status * Is the [...] Matthew James RMA documented in this encounter Procedure Notes * Rebecca Brantley CRNA - 09/13/2024 10:33 AM EDTAssociated Order(s): Airway Intraop Airway Placement: Date/Time: 09/13/2024 10:20 AM Induction type: IV Mask size: Standard adult Pre-Oxygenation: Standard Mask ventilation: Easy mask ventilation Technique: Video laryngoscope Laryngoscope blade: Velez Blade size: 3 Grade view: I Airway type: ETT- cuffed Topical Anesthetic/Lubricant: None Intubation assist devices: Stylet 14fr Airway location: Oral Device size: 7mm Secured at: 22 cm Secured by: Tape Measured from: Teeth Placement verified: Auscultation, End tidal CO2 and Symmetric chest wall motion Condition: Unchanged and Atraumatic Insertion attempts: 1 Attempt 1 by: Optoelectronic Technician Student Title: Other (Comment) lidocaine 4 % ([id number]) laryngotracheal solution - Laryngotracheal 4 mL - 09/13/2024 10:20:00 AM: documented in this encounter OR Notes * Anesthesia Postprocedure Evaluation - Renate Liao MD - 09/13/2024 12:26 PM EDT Post-Anesthesia Evaluation Note Patient Name: Delilah Ortega Patient Date: September 13, 2024 Post-Anesthesia Evaluation Patient Location: PACU Post op vitals: stable Difficult airway: no Nausea controlled: yes Level of consciousness: awake Post anesthesia pain: adequate analgesia Airway patency: patent Respiratory status: room air and spontaneous ventilation Cardiovascular status: stable Hydration status: euvolemic Temperature: Normothermia Perioperative complications: NONE Vitals Value Taken Time BP 128/92 09/13/24 11:30 Resp 17 09/13/24 11:30 SpO2 97 % 09/13/24 11:30 Temp 37.3 ??C (99.1 ??F) 09/13/24 11:41 Pulse 70 09/13/24 11:30 * Anesthesia Preprocedure Evaluation - Renate Liao MD - 09/13/2024 8:15 AM EDT Pre-Anesthesia Evaluation Note Patient Name: Delilah Ortega Sex: female Patient : 1990 Age: 33 y.o. Patient Date: September 13, 2024 Procedure(s): CYSTOSCOPY, RIGHT URETEROSCOPY, LASER LITHOTRIPSY, RIGHT STENT PLACEMENT OR EXCHANGE Anesthesia Evaluation Previous anesthesia. 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 Opioids : Naive Body mass index is 33.33 kg/m??. Anesthesia Plan ASA 2 Last solid intake: The patient has not eaten within the last 8 hours. Last clear liquid intake: The patient has not had clear liquids within the last 2 hours. Anesthesia Plan: general Induction: intravenous Monitors: STD Scopolamine PONV Risk Score: 3. Score of 3 or more is High Risk for PONV, combination antiemetic prophylaxis isindicated. Informed consent Anesthetic plan and risks discussed with: patient and family. Chart Reviewed and patient examined documented in this encounter Miscellaneous Notes * PAT Pre Evaluation for Anesthesia - Anitha Freed APRN - 09/12/2024 2:40 PM EDT Pre-Anesthesia Evaluation Note Patient Name: Delilah Ortega Sex: female Patient : 1990 Age: 33 y.o. Patient Date: September 12, 2024 Procedure(s): CYSTOSCOPY, RIGHT URETEROSCOPY, LASER LITHOTRIPSY, RIGHT STENT PLACEMENT OR EXCHANGE Anesthesia Evaluation Previous anesthesia. 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 Opioids : Naive Body mass index is 33.33 kg/m??. Anesthesia Plan Anesthesia Plan: general Scopolamine PONV Risk Score: 3. Score of 3 or more is High Risk for PONV, combination antiemetic prophylaxis isindicated. Chart Reviewed documented in this encounter Plan of Treatment Upcoming Encounters Date Type Department Care Team (Late st Contact Info) Description 12/13/2024 9:30 AM EDT Office Visit [facility] [address] [place] [address] Ashley Campbell, PAStellaC [address] [place] [address] 01/27/2025 8:30 AM EST Office Visit [facility] [address] [facility] [address] [place] [address] Kristal Hargrove, [facility] [address] [place] [address] documented as of this encounter Goals Goal Patient Goal Type Associated Problems Recent Progress Patient-Stated? Author Maintain a healthy diet, exercise regularly and maintain an ideal body weight General No Shahla Malik RMA documented as of this encounter Procedures Procedure Name Priority Date/Time Associated Diagnosis Comments INTRAOP AIRWAY PLACEMENT Routine 09/13/2024 10:20 AM EDT documented in this encounter Results * INTRAOP AIRWAY PLACEMENT (09/13/2024 10:20 AM EDT) Narrative [facility] - 09/13/2024 10:20 AM EDT Rebecca Brantley CRNA 09/13/2024 10:35 AM Intraop Airway Placement: Date/Time: 09/13/2024 10:20 AM Induction type: IV Mask size: Standard adult Pre-Oxygenation: Standard Mask ventilation: Easy mask ventilation Technique: Video laryngoscope Laryngoscope blade: Velez Blade size: 3 Grade view: I Airway type: ETT- cuffed Topical Anesthetic/Lubricant: None Intubation assist devices: Stylet 14fr Airway location: Oral Device size: 7mm Secured at: 22 cm Secured by: Tape Measured from: Teeth Placement verified: Auscultation, End tidal CO2 and Symmetric chest wall motion Condition: Unchanged and Atraumatic Insertion attempts: 1 Attempt 1 by: Optoelectronic Technician Student Title: Other (Comment) lidocaine 4 % ([id number]) laryngotracheal solution - Laryngotracheal 4 mL - 09/13/2024 10:20:00 AM: us Renate Liao [place] ANESTHESIA [place] [address] documented in this encounter Visit Diagnoses Not on filedocumented in this encounter Administered Medications Inactive Administered Medications - up to 1 most recent administrations Medication Order MAR Action Action Date Dose Rate Site ciprofloxacin in 5 % dextrose (CIPRO) IVPB 400 mg 400 mg, Intravenous, MACHINE LONG GOODS HELPER TO O.R., 1 dose, On Mon09/13/24 at 0700, Administer over 60 Minutes, Reason for Therapy: Surgical Prophylaxis Given 09/13/2024 10:22 AM EDT 400 mg dexAMETHasone (DECADRON) injection Intravenous, PRN (Anesthesia), Starting on Mon09/13/24 at 1023, Until Mon09/13/24 at 1046, Anesthesia Intra-op Given 09/13/2024 10:23 AM EDT 8 mg fentaNYL (SUBLIMAZE) injection Intravenous, PRN (Anesthesia), Starting on Mon09/13/24 at 1017, Until Mon09/13/24 at 1046, Anesthesia Intra-op Given 09/13/2024 10:21 AM EDT 50 mcg lactated ringers infusion Intravenous, at 50 mL/hr, PREPROCEDURE CONTINUOUS, Starting on Mon09/13/24 at 0710, Until Mon09/13/24 at 1626, To be given in SDS/Pre-op Holding Area, Pre-op (Holding/SDS Meds) IV Restarted 09/13/2024 10:11 AM EDT lidocaine 1% 10 mg/mL (1 %) injection Intravenous, PRN (Anesthesia), Starting on Mon09/13/24 at 1017, Until Mon09/13/24 at 1046, Anesthesia Intra-op Given 09/13/2024 10:17 AM EDT 50 mg lidocaine HCl ([id number]-IHQ) 4 % topical solution Laryngotracheal, ONCE PRN, Starting on Mon09/13/24 at 1020, Until Mon09/13/24 at 1020, Anesthesia Intra-op Given 09/13/2024 10:20 AM EDT 4 mL midazolam (VERSED) injection Intravenous, PRN (Anesthesia), Starting on Mon09/13/24 at 1011, Until Mon09/13/24 at 1046, Anesthesia Intra-op Given 09/13/2024 10:11 AM EDT 2 mg ondansetron (ZOFRAN) injection Intravenous, PRN (Anesthesia), Starting on Mon09/13/24 at 1023, Until Mon09/13/24 at 1046, Anesthesia Intra-op Given 09/13/2024 10:23 AM EDT 4 mg propofoL (DIPRIVAN) injection Intravenous, PRN (Anesthesia), Starting on Mon09/13/24 at 1017, Until Mon09/13/24 at 1046, Anesthesia Intra-op Given 09/13/2024 10:17 AM EDT 200 mg rocuronium injection Intravenous, PRN (Anesthesia), Starting on Mon09/13/24 at 1017, Until Mon09/13/24 at 1046, Anesthesia Intra-op Given 09/13/2024 10:17 AM EDT 40 mg sugammadex (BRIDION) injection Intravenous, PRN (Anesthesia), Starting on Mon09/13/24 at 1038, Until Mon09/13/24 at 1046, Anesthesia Intra-op Given 09/13/2024 10:38 AM EDT 200 mg documented in this encounter Care Teams Regional Production Manager Relationship Specialty Start Date End Date Giovanny Romero MD [address] [facility] [address] [place] [address] PCP - General Internal Medicine 05/27/11 documented as of this encounter
--- OUTSIDE RECORDS SUMMARY | 2024-10-10 13:01 | XMS_ITS | Encounter Summary ---
Author Organization [place] [address] Care Team Providers Care Case Maker Name Role Phone Giovanny Romero MD Primary Care Provider +1- [phone] Reason for Visit * Reason Onset Date Comments Schedule Appointment 09/13/2024 Encounter Details Date Type Department Care Team (Late st Contact Info) Description 09/13/2024 Telephone [facility] NPT[facility] [address] [place] [address] Trae Lagos MD [address] [place], [place] [id number] Schedule Appointment Social History Tobacco Use Types Packs/Day Years [...] Assessment Author No 10/19/2023 2:53 PM EDT Monisha James RMA * Is the person blind or does he/she have serious difficulty seeing even when wearing glasses? Answer Date of Assessment Author No 10/19/2023 2:53 PM EDT Matthew James, LUANAA * Does this person have serious difficulty [...] No 10/19/2023 2:53 PM EDT Matthew James RMVangie documented as of this encounter Mental Status * Because of a physical, mental or emotional condition, does this person have serious difficulty concentrating, remembering or making decisions? Answer Entry Date Author No 10/19/2023 2:53 PM EDT Matthew James RMA documented in this encounter Miscellaneous Notes * Telephone Encounter - Ita Rowe - 09/13/2024 11:09 AM EDT Patient scheduled for f/u with PW on Wednesday 12/13 at 9:30am. Appt info will print on AVS at discharge, MCM sent * Telephone Encounter - Ita Rowe - 09/13/2024 11:09 AM EDT ----- Message from Trae Lagos MD sent at 09/13/2024 10:46 AM EDT ----- Regarding: f/u patient had URS today and needs f/u in 3mo with renal ultrasound prior. follow up with [facility]. documented in this encounter Plan of Treatment Upcoming Encounters Date Type Department Care Team (Late st Contact Info) Description 12/13/2024 9:30 AM EDT Office Visit [facility] [address] [place] [address] Ashley Campbell PA-C [address] [address] 01/27/2025 8:30 AM EST Office Visit [facility] [address] [place] [address] Kristal Hargrove, [facility] [address] [place] [address] documented as of this encounter Goals Goal Patient Goal Type Associated Problems Recent Progress Patient-Stated? Author Maintain a healthy diet, exercise regularly and maintain an ideal body weight General No Shahla Malik RMA documented as of this encounter Visit Diagnoses Not on filedocumented in this encounter Care Teams Case Maker Relationship Specialty Start Date End Date Giovanny Romero MD [address] [place] [address] [address] [place], [place] [id number] PCP - General Internal Medicine 05/27/11 documented as of this encounter
--- OUTSIDE RECORDS SUMMARY | 2024-10-10 13:01 | XMS_ITS | Encounter Summary ---
Author Organization [place] [address] Care Team Providers Care Teller Vault Name Role Phone Giovanny Romero MD Primary Care Provider +1- [phone] Reason for Visit * Reason Onset Date Comments Back Pain 09/17/2024 Encounter Details Date Type Department Care Team (Late st Contact Info) Description 09/17/2024 Nurse Triage [facility] [address] [id number] Flori Borja, KIRAN Social History Tobacco Use Types Packs/Day Years [...] No 10/19/2023 2:53 PM EDT Matthew James, PHILLIP * Does this person have difficulty dressing or bathing? Answer Date of Assessment Author No 10/19/2023 2:53 PM EDT Matthew James, PHILLIP * Because of a physical, mental or emotional condition, does this person have difficulty doing errands alone such as visiting a doctor's office or shopping? Answer Date of Assessment Author No 10/19/2023 2:53 PM EDT Matthew James PHILLIP documented as of this encounter Mental Status * Because of a physical, mental or emotional condition, does this person have serious difficulty concentrating, remembering or making decisions? Answer Entry Date Author No 10/19/2023 2:53 PM EDT Matthew James PHILLIP documented in this encounter Miscellaneous Notes * Telephone Encounter - Flori Borja RN - 09/17/2024 8:54 PM EDT Nurse Triage Call -Chief Complaint: pt had kidney stone removed and stent removed 09/13. Now has right mid lower back pain. Occasionally shoots around and has urinary frequency. Pain is 5, it will jump up to 10 and cause nasuea. She has taken Toradol with no relief. -Reported by: Patient -Vitals: No vitals obtained on this call -Disposition per protocol: ED -Follow up/Concerns: message sent to urology and added Dr. Leigha Tabor per MD She can wait it out or go the er and get a scan. If she removed it too early, they may have been a fragment on its way out, and it got stuck Reason for Disposition Vomiting Protocols used: Flank Pain-A-AH documented in this encounter Plan of Treatment Upcoming Encounters Date Type Department Care Team (Late st Contact Info) Description 12/13/2024 9:30 AM EDT Office Visit [facility] [address] [place] [id number] Ashley Campbell, PAStellaC [address] [place] [address] 01/27/2025 8:30 AM EST Office Visit [facility] [address] [place] [address] Kristal Hargrove, [facility] [address] [place] [address] documented as of this encounter Goals Goal Patient Goal Type Associated Problems Recent Progress Patient-Stated? Author Maintain a healthy diet, exercise regularly and maintain an ideal body weight General No Shahla Malik, PHILLIP documented as of this encounter Visit Diagnoses Not on filedocumented in this encounter Care Teams Teller Vault Relationship Specialty Start Date End Date Giovanny Romero MD [address] [facility] [address] [place] [address] PCP - General Internal Medicine 05/27/11 documented as of this encounter
--- OUTSIDE RECORDS SUMMARY | 2024-10-10 13:01 | XMS_ITS | Encounter Summary ---
Author Organization [place] [address] Care Team Providers Care Car Spotter Name Role Phone Giovanny Romero MD Primary Care Provider +1- [phone] Encounter Details Date Type Department Care Team (Late st Contact Info) Description 09/18/2024 Results Follow-Up [facility] [address] [place] [address] Trae Lagos MD [address] [place] [address] [facility] - REF LAB Social History Tobacco Use Types Packs/Day Years [...] Matthew James RMA documented in this encounter Plan of Treatment Upcoming Encounters Date Type Department Care Team (Late st Contact Info) Description 12/13/2024 9:30 AM EDT Office Visit [facility] [address] [place] [phone] Ashley Campbell PA-C [address] [place], [place] [id number] 01/27/2025 8:30 AM EST Office Visit [facility] [address] [place] [address] [address] [place] [address] Kristal Hargrove, [facility] [address] [place], [place] [id number] documented as of this encounter Goals Goal Patient Goal Type Associated Problems Recent Progress Patient-Stated? Author Maintain a healthy diet, exercise regularly and maintain an ideal body weight General No Shahla Malik RMA documented as of this encounter Visit Diagnoses Not on filedocumented in this encounter Care Teams Car Spotter Relationship Specialty Start Date End Date Giovanny Romero MD [address] [place] [address] [address] [place] [id number] PCP - General Internal Medicine 05/27/11 documented as of this encounter
--- OUTSIDE RECORDS SUMMARY | 2024-10-10 13:01 | XMS_ITS | Encounter Summary ---
Author Organization [facility] [place] [address] Care Team Providers Care Wet Milling Wheel Operator Name Role Phone Giovanny Romero MD Primary Care Provider +1- [phone] Encounter Details Date Type Department Care Team (Latest Contact Info) Description 09/12/2024 Travel Social History Tobacco Use Types Packs/Day Years [...] EDT Office Visit [facility] [address] [place] [address] Ashley Campbell PA-C [address] [place] [address] 01/27/2025 8:30 AM EST Office Visit [facility] [address] [facility] [address] [place] [address] Kristal Hargrove, [facility] [address] [place] [address] documented as of this encounter Goals Goal Patient Goal Type Associated Problems Recent Progress Patient-Stated? Author Maintain a healthy diet, exercise regularly and maintain an ideal body weight General No Shahla Malik RMA documented as of this encounter Visit Diagnoses Not on filedocumented in this encounter Care Teams Wet Milling Wheel Operator Relationship Specialty [place] [address] [place] [address] [address] [place] [address] PCP - General Internal Medicine 05/27/11 documented as of this encounter
--- OUTSIDE RECORDS SUMMARY | 2024-10-10 13:01 | XMS_ITS | Clinical Summary ---
Author Organization [facility] Primary Care Address [address] [place] [address] Phone Care Team Providers Care Turbine Attendant Name Role Phone Giovanny Romero MD Primary Care Provider [phone] Allergies Active Allergy Reactions Criticality Noted Date Comments Amoxicillin-Pot Clavulanate Hives,Nausea And Vomiting Medi um 05/27/2011 Sumatriptan Succinate Palpitations Medium 07/07/2011 Penicillins Anaphylaxis High 05/27/2011 Medications meloxicam (MOBIC) 15 mg Oral TabletIndicati ons:TMJ pain dysfunction syndrome Take 1 Tablet by mouth daily as needed for Pain. 90 Tablet 1 02/11/20 23 Active Additional Information Patient not taking.Reason: Therapy Completed, Reported on 09/12/2024 nadoloL (CORGARD) 40 mg Oral TabletIndicati ons:Migraine without aura and without status migrainosus, not intractable tablet nightly 30 Tablet 5 10/03/19 24 Active Additional Information Patient not taking.Reason: Therapy Completed, Reported on 09/12/2024 erenumab-aooe (AIMOVIG AUTOINJECTOR) 70 mg/mL SubQ Auto-InjectorI ndications:Chr onic migraine without aura, intractable, with status migrainosus Subcutaneous (Inject under the skin) 70 mg every 30 days. 1 Each 5 10/03/19 24 Active Additional Information Patient not taking.Reason: Other, Reported on 09/12/2024 albuterol (PROVENTIL HFA;VENTOLIN HFA) 90 mcg/actuation Inhl HFA Aerosol InhalerIndicat ions:Acute bronchitis, unspecified organism Inhale 2 Puffs into the lungs every 6 hours as needed. 1 Each 4 10/03/19 24 Active ubrogepant (UBRELVY) 50 mg Oral Tablet Take 1 Tablet by mouth as needed for Migraine. May repeat dose in 2 hours one time up to a maximum of 100mg per 24 hours 16 Tablet 5 12/08/19 Active FLUoxetine (PROZAC) 40 mg Oral CapsuleIndicat ions:Major depressive disorder, recurrent episode, mild,Panic disorder Take 1 Capsule by mouth daily. 30 Capsule 5 12/08/19 Active Additional Information Patient not taking.Reason: Therapy Completed, Reported on 09/12/2024 erenumab-aooe (AIMOVIG AUTOINJECTOR) 140 mg/mL SubQ Auto-Injector Subcutaneous (Inject under the skin) 1 mL every 30 days. 1 Each 5 12/08/19 Active Additional Information Patient not taking.Reported on 09/12/2024 azelastine (ASTELIN) 137 mcg (0.1 %) Nasl [place], Non-AerosolInd ications:Acute bacterial sinusitis 2 Sprays in each nostril 2 times daily. Use in each nostril as directed 30 mL 5 12/08/19 Active Additional Information Patient taking differently:2 [place] Each Nare 2 TIMES DAILY,Use in each nostril as directed uses prn, Reason: Advised by Physician, Reported on 09/12/2024 ketoconazole (NIZORAL) 2 % Top Cream Apply topically daily. 60 g 2 03/01/19 Active Additional Information Patient not taking.Reason: Therapy Completed, Reported on 09/12/2024 ketorolac (TORADOL) 10 mg Oral Tablet Take 1 Tablet by mouth every 6 hours as needed for Pain. 12 Tablet 09/13/19 25 Active oxybutynin (DITROPAN-XL) 10 mg Oral Tablet Extended Rel 24 hr TAKE 1 TABLET BY MOUTH DAILY 15 Tablet 09/25/19 25 Active HYDROcodone-ac etaminophen (NORCO) 5-325 mg Oral Tablet Take 1-2 Tablets by mouth every 6 hours as needed for Acute Pain (R52) for up to 3 days. 15 Tablet 09/09/19 25 025 tamsulosin (FLOMAX) 0.4 mg Oral Capsule Take 1 Capsule by mouth daily for 7 days. 7 Capsule 09/09/19 25 025 ondansetron (ZOFRAN-ODT) 4 mg Oral Tablet, Rapid Dissolve Dissolve 1 Tablet by mouth every 6 hours as needed for Nausea for up to 30 days. 12 Tablet 09/09/19 25 025 ondansetron (ZOFRAN-ODT) 4 mg Oral Tablet, Rapid Dissolve Dissolve 1 Tablet by mouth every 6 hours as needed for Nausea for up to 30 days. 12 Tablet 09/09/19 25 025 sulfamethoxazo le-trimethopri m (BACTRIM DS) 800-160 mg Oral Tablet Take 1 Tablet by mouth every 12 hours for 7 days. 14 Tablet 09/14/19 25 025 oxybutynin (DITROPAN-XL) 10 mg Oral Tablet Extended Rel 24 hr Take 1 Tablet by mouth daily. 15 Tablet 09/14/19 25 025 Discontinued Active Problems Problem Noted Date Diagnosed Date Right nephrolithiasis 09/12/2024 Major depressive disorder, recurrent episode, mi ld 11/24/2023 Assessment & Plan (12/10/2023 7:56 AM EDT): Goal: achieve mental health wellness where ADLs, family, social and work relationships are optimal Depression Screen Score: Addressed: - Current stressors contributing to sx explored and discussed Compliance: - compliant with medications Advice: - remain compliant with follow up and medications - advised to see counseling Medication Management: - medication management decisions took place at today's visit (see orders) - Prozac increased to 40 mg Orders: FLUoxetine (PROZAC) 40 mg Oral Capsule; Take 1 Capsule by mouth daily. Generalized anxiety disorder 11/24/2023 Panic disorder 10/05/2023 Assessment & Plan (12/10/2023 7:55 AM EDT): Goal: achieve mental health wellness where ADLs, family, social and work relationships are optimal Depression Screen Score: Addressed: - Current stressors contributing to sx explored and discussed Compliance: - compliant with medications Advice: - remain compliant with follow up and medications - advised to see counseling Medication Management: - medication management decisions took place at today's visit (see orders) - not responding as expected - Prozac increased to 40 mg today Orders: FLUoxetine (PROZAC) 40 mg Oral Capsule; Take 1 Capsule by mouth daily. Other subjective visual disturbances 08/06/2021 Assessment & Plan (08/06/2021 12:34 PM EDT): Due to subjective symptoms, recommended having a baseline VF test to rule out any peripheral defects that could indicate a neurological cause for her symptoms. RTC for next tech 30-2 SF VF Umbilical hernia without obstruction and without gangrene 10/15/2019 Overview (10/15/2019): Added automatically from request for surgery [id number] Migraine without aura and wi thout status migrainosus, not intractable 05/11/2018 Migraine 07/31/2013 Assessment & Plan (08/19/2021 9:35 AM EDT): Pt symptoms correlate with visual aura experienced with headache/migraines. No refractive Rx soncerns, no optic nerve edema or swelling. There were no ocular concerns or findings that would indicate potential cause for her current symptoms. VF results better OD than OS. A few scattered defects OU but no definitive findings from field testing. Assessment & Plan (08/06/2021 12:35 PM EDT): Pt symptoms correlate with visual aura experienced with headache/migraines. No refractive Rx soncerns, no optic nerve edema or swelling. There were no ocular concerns or findings that would indicate potential cause for her current symptoms. Advised RTC for 30-2 SF VF to establish baseline as well as screen for any peripheral defects for a potential cause of the symptoms. Pt to advise tech at time of testing if she is or is not experiencing a migraine at the time of testing. Macular and optic nerve scans were reviewed and used to hot metal mixer operator helper in the decision making process of this case. Asthma 07/08/2011 Resolved Problems Problem Noted Date Diagnosed Date Resolved Date History of migraine headaches 07/08/2011 05/11/2018 Encounters Date Type Department Care Team Description 09/24/2024 Refill [facility]PT[facility] [address] [place] [address] Trae Lagos MD Medication Refill 09/18/2024 Results Follow-Up [address] [address] Trae Lagos MD CALCULI (STONE) ANALYSIS - REF LAB 09/17/2024 Nurse Triage [facility] Nurse Now [facility] [employer] [place] [address] Flori Borja RN 09/13/2024 10:11 AM EDT Anesthesia Event [facility] [address] [place] [address] Renate Liao MD Collins, Angela, FELT CUTTING MACHINE OPERATOR 09/13/2024 9:10 AM EDT - 09/13/2024 10:10 AM EDT Surgery [facility] [address] [place] [address] Trae Lagos MD CYSTOSCOPY,URETEROSCOPY, LASER LITHOTRIPSY,STENT EXCHANGE 09/13/2024 6:51 AM EDT - 09/13/2024 12:25 PM EDT Hospital Encounter [facility] SAME DAY SURGERY [address] [place] [address] Trae Lagos MD Preop testing (Primary Dx); Right nephrolithiasis Discharge Disposition: Home or Self Care 09/13/[address] [address] Trae Lagos MD Schedule Appointment 09/12/2024 1:00 PM EDT [facility] [address] [address] Trae Lagos MD Right nephrolithiasis (Primary Dx) 09/12/2024 Travel 09/08/2024 4:29 PM EDT - 09/08/2024 8:57 PM EDT [facility] [place] [address] Erick Jimenez MD Ureterolithiasis (Primary Dx); Right flank pain Discharge Disposition: Home or Self Care from Last 3 Months Immunizations Immunization Administration Dates Next Due DTaP 09/29/1995, 3,05/09/1991,1991,1990 HPV Quadrivalent 07/25/2007,01/11/2007, 7 Hepatitis A, Unspecified Formulation 01/11/2007 HiB, Unspecified Formulation 02/20/1992,05/08/18 92,03/07/1991 IPV 09/28/1996, 3,03/07/1991,1990 Influenza Patient Reported 11/22/2017 MMR 10/15/1996,02/20/1992 Pfizer SARS-CoV-2 Vaccine 12 + Yrs (Purple Cap) 12/25/2020 Tdap 07/16/2012,09/26/2005 Surgical History Surgery Date Site/Laterality Comments CYST REMOVAL from left ear TYMPANOSTOMY TUBE PLACEMENT HYMENECTOMY 03/15/2012 N/A SURGICAL EXCISION HYMENAL REMNANT ; Surgeon: Brad Ayala MD; Location: [facility]; Service: Gynecology BREAST ENHANCEMENT SURGERY Bilateral augmentation UMBILICAL HERNIA REPAIR 10/25/2019 N/A Robotic assisted laparoscopic umbilical hernia repair with mesh; Surgeon: Ayan Vásquez MD; Location: [facility]; Service: General Medical devices from this surgery are in the Medical Devices section. ABDOMINOPLASTY 02/14/2016 - 02/12/2017 Medical History Medical History Date Comments Asthma seasonal, uses i nhaler Migraine takes Nadolol Heart murmur ? told by dentis t Heartburn Motion sickness Bladder problem 09/12/2024 kidney stones Family History Medical History Relation Name Comments Heart Disease Brother half brother Heart Disease Mother Migraines Mother Diabetes Paternal Grandmother Migraines Paternal Grandmother Anesth Problems Neg Hx Asthma Neg Hx Defects Neg Hx Bleeding Prob Neg Hx Breast Cancer Neg Hx Cancer Neg Hx Chorea Neg Hx Clotting Disorder Neg Hx Cystic Fibrosis Neg Hx Down Syndrome Neg Hx Heart Defect Neg Hx Heart Failure Neg Hx High Cholesterol Neg Hx Hypertension Neg Hx Mental Retardation Neg Hx Osteoarthritis Neg Hx Ovarian Cancer Neg Hx PKU Neg Hx Rashes/Skin Problems Neg Hx Rheum Arthritis Neg Hx Seizures Neg Hx Sickle Cell Anemia Neg Hx Stroke Neg Hx Thyroid Disease Neg Hx Relation Name Status Comments Brother half brother Alive Father Alive Mother Alive Paternal Grandmother Alive Sister Alive Social History Tobacco Use Types Packs/Day Years [...] on file Sexual Orientation Not on file Obstetrics History Para Term AB IAB SAB Ectopic Multiple Livin g Live Births 1 1 1 Date Outcome GA Total Labor Labor/2nd/3rd Weight Sex Type Anes PTL [place] A1 A5 Name Clin 2004 SAB Last Filed Vital Signs Vital Sign Reading [...] Mass Index 33.33 09/13/2024 7:12 AM EDT Plan of Treatment Upcoming Encounters Date Type Department Care Team (Late st Contact Info) Description 12/13/2024 9:30 AM EDT Office Visit [facility] [address] [place] [address] Ashley Campbell PAStellaC [address] [place] [address] 01/27/2025 8:30 AM EST [facility] [address] [place] [address] Kristal Hargrove, PREETHI [address] [facility] [place] [address] Health Maintenance Due Date Last Done Comments Hepatitis B Vaccine (2 of 3 - 3-dose series) 10/26/2000 09/28/2000 Pneumococcal Vaccine 0-49 (1 of 2 - PCV) 2009 Pap Smear 01/11/2020 01/10/2017, 12/05/2011 Cervical Cancer Screening 2020 HPV/Pap Cotest 2020 DTaP/TDaP/Td (8 - Td or Tdap) 07/16/2022 07/16/2012, 09/26/2005, 09/29/1995, Additional history exists COVID-19 Vaccine ( - season) 2023 12/25/2020 Influenza Vaccine (#1) 2024 , 11/22/2017, 11/02/2016 (Postponed), Additional history exists Annual Wellness Exam 12/07/2024 12/08/2023, 04/13/2020, 05/05/2014 (Postponed) Meningococcal B Vaccine Aged Out No l onger eligible based on patient's age to complete this topic Goals Goal Patient Goal Type Associated Problems Recent Progress Patient-Stated? Author Maintain a healthy diet, exercise regularly and maintain an ideal body weight General Shahla Dubon RMA Medical Devices Implanted Type Area Manager Tax Device Identifier Shelf Expiration Date Model / Serial / Lot Stent Uret [id number] Contr Dbl Pig Tapr Lpro Percuflx Cath - [id number] Implanted:Qty: 1 on 09/13/2024 by Trae Lagos MD at [facility] Stent Right: Ureter [employer]:MICROVASIVE :UROLOGY [id number] 05/03/2027 [id number] Breast Bilateral: Breast Patch [employer] Tm 4.5 (11.4cm) [place] - [id number] Implanted:Qty: 1 on 10/25/2019 by Ayan Vásquez MD at [facility] N/A: Abdomen CR BARD:DAVOL [id number] 05/10/2021 [id number] / / [id number] Procedures Procedure Name Priority Date/Time Associated Diagnosis Comments SCANNED RHYTHM STRIPS 09/16/2024 11:10 AM EDT CALCULI (STONE) ANALYSIS - REF LAB Routine 09/13/2024 10:38 AM EDT Right nephrolithiasis INTRAOP AIRWAY PLACEMENT Routine 09/13/2024 10:20 AM EDT [place] CYSTO W/URETEROSCOPY W/LITHOTRIPSY 09/13/2024 10:11 AM EDT Right nephrolithiasis POCT URINE Routine 09/13/2024 8:04 AM EDT Preop testing Right nephrolithiasis PROCALCITONIN STAT 09/08/2024 7:31 PM EDT REPEAT LACTIC ACID STAT 09/08/2024 7: 31 PM EDT URINALYSIS REFLEX STAT 09/08/2024 7:1 1 PM EDT UA W/REFLEX TO CULTURE STAT 09/08/2024 7:11 PM EDT EXTRA MADSEN URINE CX STAT 09/08/2024 7 :11 PM EDT LACTIC ACID STAT 09/08/2024 5:[address] ABD PEL ED FAST W CONTRAST STAT 09/08/2024 5:26 PM EDT LIPASE LEVEL Add-On 09/08/2024 4:35 PM EDT CBC STAT 09/08/2024 4:35 PM EDT HUMAN CHORIONIC GONADOTROPIN QUANTITATIVE STAT 09/08/2024 4:35 PM EDT BASIC METABOLIC PANEL STAT 09/08/2024 4:35 PM EDT SALINE LOCK IV STAT 09/08/2024 4:17 PM EDT CONCRETE FINISHER CYTOLOGY REQUEST (PAP ONLY) Routine 01/10/2017 2:47 PM EST Well woman exam from Last 3 Months or Most Recently Relevant to Health Maintenance Results * SCANNED RHYTHM STRIPS (09/16/2024 11:10 AM EDT) Anatomical Region Laterality Modality Other 09/16/2024 11:1 0 AM EDT us Unknown Provider IMG ECG ORDERABLES Final Result * CALCULI (STONE) ANALYSIS - REF LAB (09/13/2024 10:38 AM EDT) Calculi Comp See Note 09/18/2024 10:06 AM EDT [facility] Comment: Calculi composed primarily of calcium oxalate monohydrate. INTERPRETIVE INFORMATION: Calculi (Stone) analysis Calculi are the products of physiological processes that yield crystalline compounds in a matrix of biological compounds and blood. Matrix components are not reported. The clinically significant crystalline components identified in calculi specimens are reported. Gross description may not be consistent with composition determined by FTIR analysis. Performed By: [employer] [address] [place] [address] Take Down Sorter: Pepe Xie MD, PhD CLIA Number: [id number] Calculi Mass 70 mg 09/18/2024 10:06 AM EDT [facility] Calculi Desc See Note 09/18/2024 10:06 AM EDT [facility] Comment: Specimen consists of one brown and mark calculus. The total weight is 70 mg. Calculus STRUCTURE OF RIGHT URETER / Unknown 09/13/2024 10:38 AM EDT 09/13/2024 12:30 PM EDT us Trae Lagos MD MICROBIOLOGY - GENERAL ORDER GALDINO Final Result [facility] [address] [place], [place] [id number] * INTRAOP AIRWAY PLACEMENT (09/13/2024 10:20 AM EDT) Narrative [facility] - 09/13/2024 10:20 AM EDT Rebecca Brantley, JOB SPECIFICATION WRITER 09/13/2024 10:35 AM Intraop Airway Placement: Date/Time: [...] Atraumatic Insertion attempts: 1 Attempt 1 by: Senior Web Analyst Student Title: Other (Comment) lidocaine 4 % ([id number]) laryngotracheal solution - Laryngotracheal 4 mL - 09/13/2024 10:20:00 AM: Renate Liao MD [place] ANESTHESIA Edited Result - Final Performing Organization Address [facility] Co de Phone Number [facility] [address] [place] [address] * POCT URINE (09/13/2024 8:04 AM EDT) Preg Test, Ur negative [facility] Lot Number [id number] [facility] Expiration Date 11/12/25 [facility] SeriAl # [facility] Control Line Yes YES/NO [facility] 09/13/2024 8:04 AM EDT us nAitha Freed FELT CUTTING MACHINE OPERATOR POINT OF CARE TEST ORDERABLE S Final Result Performing Organization Address [facility] de Phone Number [facility] [address] [place] [address], [facility] [phone] * REPEAT LACTIC ACID (09/08/2024 7:31 PM EDT) Lactic Acid 1.5 0.5 - 1.9 mmol/L 09/08/2024 7:58 PM EDT [facility] Blood VENOUS BLOOD / Unknown Venipuncture / Unknown 09/08/2024 7:31 PM EDT 09/08/2024 7:39 PM EDT Anna LEMUSC CHEMISTRY ORDERABLES Final Res ult Performing Organization Address [facility] de Phone Number [facility] [address] [place] [address] * PROCALCITONIN (09/08/2024 7:31 PM EDT) Procalcitonin <0.05 <=0.49 ng/mL 09/08/2024 8:07 PM EDT [facility] Blood VENOUS BLOOD / Unknown Venipuncture / Unknown 09/08/2024 7:31 PM EDT 09/08/2024 7:39 PM EDT Narrative [facility] - 09/08/2024 8:07 PM EDT Procalcitonin [...] progression to severe sepsis and/or septic shock. Anna Etienne PA-C CHEMISTRY ORDERABLES Final Res ult Performing Organization Address [facility] de Phone Number [facility] [address] [place] [address] * (ABNORMAL) URINALYSIS REFLEX (09/08/2024 7:11 PM EDT) UA Color Colorless 09/08/2024 7:24 PM EDT [facility] UA Appear Clear Clear 09/08/2024 7:24 PM EDT [facility] UA Glucose Negative Negative mg/dL 09/08/2024 7:24 PM EDT [facility] UA Ketones Negative Negative mg/dL 09/08/2024 7:24 PM EDT [facility] UA Blood 1+ (0.06 - 0.1 mg/dL)(A) Negative 09/08/2024 7:24 PM EDT [facility] UA pH 6.5 5.0 - 8.0 pH 09/08/2024 7:24 PM EDT [facility] UA Protein Negative Negative mg/dL 09/08/2024 7:24 PM EDT [facility] UA Urobilinogen Normal <=1 mg/dL 7:24 PM EDT [facility] UA Bili Negative Negative 09/08/2024 7:24 PM EDT [facility] UA Nitrite Negative Negative 09/08/2024 7:24 PM EDT [facility] UA Leuk Est Negative Negative 09/08/2024 7:24 PM EDT [facility] UA Spec Grav 1.010 1.001 - 1.035 no units 09/08/2024 7:24 PM EDT [facility] Comment:Reference range johanny d for random specimens only. UA RBC 3 0 - 3 /HPF 09/08/2024 7:24 PM EDT [facility] UA Squam Epi 3+ /LPF 09/08/2024 7:24 PM EDT [facility] UA Mucus Trace /LPF 09/08/2024 7:24 PM EDT [facility] Urine STRUCTURE OF URINARY TRACT PROPER / Unknown 09/08/2024 7:11 PM EDT 09/08/2024 7:15 PM EDT Erick Jimenez MD URINE ORDERABLES Final Result [facility] [address] [place] [address] * EXTRA MADSEN URINE CX (09/08/2024 7:11 PM EDT) Urine STRUCTURE OF URINARY TRACT PROPER / Unknown 09/08/2024 7:11 PM EDT 09/08/2024 7:15 PM EDT us Erick Jimenez MD MICROBIOLOGY - GENERAL ORDERABL ES Final Result Performing Organization Address [facility] Co de Phone Number [facility] [address] [place] [address] * (ABNORMAL) LACTIC ACID (09/08/2024 5:36 PM EDT) Lactic Acid 3.1(H) 0.5 - 1.9 mmol/L 09/08/2024 5:58 PM EDT [facility] Blood VENOUS BLOOD / Unknown Venipuncture / Unknown 09/08/2024 5:36 PM EDT 09/08/2024 5:40 PM EDT us Anna Etienne PA-C CHEMISTRY ORDERABLES Final Res ult Performing Organization Address [facility] Co de Phone Number [facility] [address] [place] [address] * CT ABD PEL ED [...] 2 mm calculus at the right ureteropelvicjunction. us Anna Etienne PA-C IM CT ORDERABLES Final Result * (ABNORMAL) CBC (09/08/2024 4:35 PM EDT) WBC 17.5(H) 3.7 - 10.3 x10(3)/mcL 09/08/2024 4:44 PM EDT [facility] RBC 5.14 3.90 - 5.20 x10(6)/mcL 09/08/2024 4:44 PM EDT [facility] Hgb 13.4 11.2 - 15.7 g/dL 09/08/2024 4:44 PM EDT [facility] Hct 41.0 34.0 - 45.0 % 09/08/2024 4:44 PM EDT [facility] MCV 79.8(L) 80.0 - 100.0 fL 09/08/2024 4:44 PM EDT [facility] MCH 26.1 26.0 - 34.0 pg 09/08/2024 4:44 PM EDT [facility] MCHC 32.7 30.7 - 35.5 g/dL 09/08/2024 4:44 PM EDT [facility] RDW 14.2 <=14.9 % 09/08/2024 4:44 PM EDT [facility] Platelet 383(H) 155 - 369 x10(3)/mcL 09/08/2024 4:44 PM EDT [facility] MPV 9.7 8.8 - 12.5 fL 09/08/2024 4:44 PM EDT [facility] Blood VENOUS BLOOD / Unknown Venipuncture / Unknown 09/08/2024 4:35 PM EDT 09/08/2024 4:41 PM EDT us Anna Etienne PA-C HEMATOLOGY ORDERABLES Final Re sult [facility] [address] [place] [address] * HUMAN CHORIONIC GONADOTROPIN QUANTITATIVE (09/08/2024 4:35 PM EDT) [facility] Hcg Quant <1 <5 mIU/mL 09/08/2024 5:02 PM EDT [facility] Blood VENOUS BLOOD / Unknown Venipuncture / Unknown 09/08/2024 4:35 PM EDT 09/08/2024 4:41 PM EDT Narrative [facility] - 09/08/2024 5:02 PM EDT Female [...] sample can interfere with this immunoassay test. Erick Jimenez MD CHEMISTRY ORDERABLES Final Resu lt Performing Organization Address [facility] Co de Phone Number [facility] [address] [place] [address] * LIPASE LEVEL (09/08/2024 4:35 PM EDT) Lipase Lvl 36 13 - 60 U/L 09/08/2024 7:21 PM EDT [facility] Blood VENOUS BLOOD / Unknown Venipuncture / Unknown 09/08/2024 4:35 PM EDT 09/08/2024 4:41 PM EDT us Anna Etienne PA-C CHEMISTRY ORDERABLES Final Res ult Performing Organization Address [facility] Co de Phone Number [facility] [address] [place] [address] * (ABNORMAL) BASIC METABOLIC PANEL (09/08/2024 4:35 PM EDT) Sodium 138 136 - 145 mmol/L 09/08/2024 5:04 PM EDT [facility] Potassium 3.8 3.5 - 5.0 mmol/L 09/08/2024 5:04 PM EDT [facility] Chloride 106 98 - 107 mmol/L 09/08/2024 5:04 PM EDT [facility] Total CO2 16(L) 22 - 29 mmol/L 09/08/2024 5:04 PM EDT [facility] Anion Gap 16 7 - 16 mmol/L 09/08/2024 5:04 PM EDT [facility] Calcium 8.8 8.6 - 10.4 mg/dL 09/08/2024 5:04 PM EDT [facility] Glucose Lvl 154(H) 70 - 99 mg/dL 09/08/2024 5:04 PM EDT [facility] BUN 8 6 - 20 mg/dL 09/08/2024 5:04 PM EDT [facility] Creatinine 0.71 0.51 - 1.30 mg/dL 09/08/2024 5:04 PM EDT [facility] eGFR (CKD-EPIcr 2020) 115 >=60 mL/min/1.7 3 m2 09/08/2024 5:04 PM EDT [facility] Comment:Estimated GFR was ca lculated using the CKD-EPIcr (2020) equation refit without race. The equation is recommended by the National Kid[employer] - [place] Society of Nephrology Task Force. Blood VENOUS BLOOD / Unknown Venipuncture / Unknown 09/08/2024 4:35 PM EDT 09/08/2024 4:41 PM EDT us Erick Jimenez MD CHEMISTRY ORDERABLES Final Resu lt [facility] [address] [id number] * CONCRETE FINISHER CYTOLOGY REQUEST (PAP ONLY) (01/10/2017 2:47 PM EST) CASE REPORT Gynecologic Cytology Report Case: [id number] Authorizing Provider: Krissy Andujar CNM Collected: 01/10/2017 1447 Ordering Location: [facility] Received: 01/10/2017 1447 First Screen: Carrol Camilo CT Specimen: LIQUID-BASED PAP - CERVICAL/ENDOCERV ICAL, Cervix, Endocervical 01/11/2017 9:07 AM EST [facility] PAP FINAL DIAGNOSIS Negative for intraepithelial lesion or malignancy 01/11/2017 9:07 AM EST [facility] at 0907 EST PAP SMEAR ADEQUACY Satisfactory for evaluation 01/11/2017 9:07 AM EST [facility] PAP ORGANISMS NOTED Abundant bacteria present. 01/11/2017 9:07 AM EST [facility] ENDOCERVICAL T-ZONE Transformation zone present 01/11/2017 9:07 AM EST [facility] EMBEDDED IMAGES 9:07 AM EST [facility] PAP DISCLAIMER The Pap Smear is a screening test that aids in the detection of cervical cancer and cancer precursors. Both false positive and false negative results can occur. The test should be used at regular intervals, and positive results should be confirmed before definitive therapy. 01/11/2017 9:07 AM EST [facility] ENDOCERVICAL STRUCTURE / Unknown 01/10/2017 2:47 PM EST 01/10/2017 2:47 PM EST Krissy Andujar CNM CYTOLOGY ORDERABLES Final Re sult [facility] [address] [place] [address] from Last 3 Months or Most Recently Relevant to Health Maintenance Insurance EM PPO PPO Care Teams Turbine Attendant Relationship Specialty Start Date End Date Giovanny Romero MD [address] [facility] [address] [place] [id number] PCP - General Internal Medicine 05/27/11
--- OUTSIDE RECORDS SUMMARY | 2024-10-10 13:01 | XMS_ITS | Encounter Summary ---
Author Organization [place] [address] Care Team Providers Care Flat Grinder Operator Name Role Phone Giovanny Romero MD Primary Care Provider [phone]- [phone] Reason for Visit * Reason Comments Medication Refill Encounter Details Date Type Department Care Team (Late st Contact Info) Description 09/24/2024 Refill [facility] [address] [place] [id number] Trae Lagos MD [address] [place] [address] Medication Refill Social History Tobacco Use Types Packs/Day Years [...] Author No 10/19/2023 2:53 PM EDT Matthew Jamesifer PHILLIP Barragan * Is the person blind or does [...] 1 TABLET BY MOUTH DAILY 15 Tablet 09/24/2024 documented in this encounter Plan of Treatment Upcoming Encounters Date Type Department Care Team (Late st Contact Info) Description 12/13/2024 9:30 AM EDT Office Visit [facility] [address] [place] [address] Ashley Campbell, PAStellaC [address] [place] [address] 01/27/2025 8:30 AM EST Office Visit [facility] [address] [facility] [address] [place] [address] Kristal Hargrove, PREETHI [address] [place] [address] documented as of this encounter Goals Goal Patient Goal Type Associated Problems Recent Progress Patient-Stated? Author Maintain a healthy diet, exercise regularly and maintain an ideal body weight General No Shahla Malik RMA documented as of this encounter Visit Diagnoses Not on filedocumented in this encounter Discontinued Medications Medication Sig Discontinue Reason Start Date End Da te oxybutynin (DITROPAN-XL) 10 mg Oral Tablet Extended Rel 24 hr Take 1 Tablet by mouth daily. 09/13/2024 09/24/2024 documented as of this encounter Care Teams Flat Grinder Operator Relationship Specialty Start Date End Date Giovanny Romero MD [address] [facility] [address] [place] [address] PCP - General Internal Medicine 05/27/11 documented as of this encounter
[2024-10-10 13:05] LABS: Microscopic, Urine URINE MICROSCOPIC (MICROSCOPIC)
[2024-10-10 13:35] LABS: Hematocrit 37.2 % (37.0-47.0); Hemoglobin 11.8 g/dL (12.2-16.2); Immature Granulocytes % 0.5 %; Mean Corpuscular HGB Conc 31.7 g/dL (31.8-35.4); Mean Corpuscular Hemoglobin 25.7 pg (27.0-31.2); Mean Corpuscular Volume 81.0 fl (81-99); Nucleated Red Blood Cells % 0 %; Platelet Count 313 K/mm3 (142-424); Red Blood Count 4.59 M/mm3 (4.20-5.40); Red Cell Distribution Width-SD 41.9 fL; White Blood Count 14.4 K/mm3 (4.8-10.8)
[2024-10-10 13:48] LABS: Bilirubin,Urine Negative (Negative); Color,Urine YELLOW (Yellow); Glucose,Urine (UA) Negative (Negative); Ketones,Urine Negative (Negative); Leukocyte Esterase,Urine Negative (Negative); PH,Urine 5.5 (5.0-8.5); Protein,Urine Negative (Negative); Specific Gravity, Urine >= 1.030 (1.005-1.030); Urobilinogen,Urine 0.2 EU/dl (0.2)
[2024-10-10 13:50] LABS: Albumin Level 4.1 g/dl (3.5-5.0); Chloride 109 mmol/L (98-107); Potassium 4.0 mmoL/L (3.5-5.1); Sodium 138 mmol/L (136-145)
[2024-10-10 13:52] LABS: Alanine Aminotransferase 29 U/L (12-78); Bilirubin,Unconjugated 0.0 mg/dL (0.0-1.1); Blood Urea Nitrogen 12 mg/dl (7-17); Creatinine,Serum 0.70 mg/dl (0.52-1.04); Estimated Glomerular Filt Rate 96 ml/min (>60); GFR (African American) 117 ML/MIN (>60)
[2024-10-10 13:53] LABS: Alkaline Phosphatase 84 U/L (38-126); Anion Gap 11.0 mEq/L (5-15); Aspartate Amino Transferase 27 U/L (14-36); Bilirubin,Direct 0.2 mg/dl (0.0-0.4); Bilirubin,Indirect 0.0 mg/dL (0.0-0.9); Bilirubin,Total 0.2 mg/dl (0.2-1.3); Calcium 8.6 mg/dl (8.4-10.2); Carbon Dioxide 22 mmol/L (22.0-30.0); Cholesterol 214 mg/dl (140-200); Glucose 94 mg/dl (74-100); HDL Cholesterol 48 mg/dl (40-60); Magnesium 1.9 mg/dl (1.6-2.3); Total Protein,Serum 6.9 g/dl (6.3-8.2); Triglycerides 116 mg/dl (30-150)
[2024-10-10 14:08] LABS: Free T4 (Free Thyroxine) 0.91 ng/dl (0.78-2.19)
[2024-10-10 14:09] LABS: 25-OH Vitamin D, Total 29.0 ng/mL (30-100)
[2024-10-10 14:23] LABS: Thyroid Stimulating Hormone 7.56 uIU/mL (0.465-4.68)
[2024-10-10 14:28] LABS: RBC,Urine Occasional #/hpf (0-3)
[2024-10-10 14:29] LABS: Bacteria,Urine 1+ /lpf
[2024-10-10 14:53] LABS: Hypochromasia 1+; Total Cells Counted 100
== END 2024-10-10 23:59 | disposition home or self-care (01) ==
LOC: LAB 12:56
PROVIDERS: PCP Pediatrics; Visit Provider Internal Medicine
DX: R42 Dizziness and giddiness (principal); R06.02 Shortness of breath; R53.83 Other fatigue
CPT/HCPCS: 36415; 80048; 80061; 80076; 81001; 82306; 83735; 84439; 84443; 85007; 85025